=== PATIENT | male | born 1975 | race Asian ===

== ENCOUNTER 2017-10-09 15:54 | Inpatient (IN) | payer MEDICAID ==
[~2017-10-09] VITALS: Ht 180.3 cm; Wt 89.8 kg
[~2017-10-09 15:54] MED LIST: BACL10TA PO; CIPR-211 PO; GABA-529 PO; HYDR-4100 PO; LORA-258 PO; LOVA20TA2 PO
[2017-10-09 16:17] VITALS: BP_SYST 122
[2017-10-09 18:00] LABS: BILIRUBIN,URINE NEGATIVE (NEGATIVE); BLOOD, URINE 3+ (NEGATIVE); CLARITY/URINE SL HAZY (CLEAR); COLOR,URINE YELLOW (YELLOW); GLUCOSE,URINE NEGATIVE (NEGATIVE); KETONES,URINE TRACE (NEGATIVE); LEUKOCYTE ESTERASE ,URINE 3+ (NEGATIVE); NITRITE, URINE POSITIVE (NEGATIVE); PH,URINE 7.5 (5.0-8.0); PROTEIN URINE 1+ (NEGATIVE); UROBILINOGEN,URINE 0.2 (0.2-1.0)
[2017-10-09] MEDS ORDERED: LORazepam 1 MG TABLET PO ONE (18:00)
[2017-10-09 18:09] LABS: BACTERIA,URINE MODERATE /HPF (None Seen); WBC,URINE >100 /HPF (0-3)
[2017-10-09 18:10] LABS: MUCUS,URINE None Seen /LPF (None Seen)
[2017-10-09 18:30] LABS: CALCIUM 10.2 mg/dL (8.4-11.0); CREATININE 0.52 mg/dL (0.55-1.30); POTASSIUM 4.2 mmol/L (3.5-5.1)
[2017-10-09] MEDS ORDERED: cefTRIAXone 1 GM VIAL IM ONE (18:30)
[2017-10-09 18:31] LABS: BASOPHILS # (AUTO) 0.2 K/uL (0.0-0.2); BASOPHILS % (AUTO) 1.1 % (0.0-2.0); EOSINOPHILS # (AUTO) 0.1 K/uL (0.0-0.4); EOSINOPHILS % (AUTO) 0.6 % (0.0-4.0); HEMATOCRIT 50.9 % (36-54); HEMOGLOBIN 17.2 g/dL (14.0-18.0); LYMPHOCYTES # (AUTO) 1.5 K/uL (1.0-5.5); LYMPHOCYTES % (AUTO) 8.5 % (20.5-51.5); MEAN CORPUSCULAR HEMOGLOBIN 29 pg (27-31); MEAN CORPUSCULAR HGB CONC 34 % (32-36); MEAN CORPUSCULAR VOLUME 87 fL (79.0-98.0); MONOCYTES % (AUTO) 5.6 % (1.7-9.3); NEUTROPHILS # (AUTO) 15.4 K/uL (1.8-7.7); NEUTROPHILS % (AUTO) 84.2 % (40.0-70.0); PLATELET COUNT (AUTO) 262 K/uL (130-430); RED BLOOD CELL COUNT(AUTO) 5.84 MIL/uL (4.2-6.2); RED CELL DISTRIBUTION WIDTH 12.9 % (9.0-15.0); WHITE BLOOD COUNT (AUTO) 18.2 K/uL (4.8-10.8)
[2017-10-09 18:35] LABS: ALBUMIN 4.3 g/dL (3.4-4.8); TOTAL BILIRUBIN 0.6 mg/dL (0.0-1.0)
[2017-10-09 18:41] LABS: PROTHROMBIN TIME 10.1 SECS (9.5-12.5)
[2017-10-09] MEDS: NACL 0.9% 1,000 ML IV SCH ×2 (19:09→20:43)
[2017-10-09] MEDS ORDERED: MORPHINE 4 MG/ML INJ. SYRINGE IVP ONE (19:15)
[2017-10-09 19:28] VITALS: BP_SYST 111
[2017-10-09] MEDS ORDERED: POTASSIUM CHLORIDE 20 MEQ TAB.PRT.SR PO PRN (19:30)
[2017-10-09] MEDS ORDERED: ONDANSETRON HCL 4 MG/2 ML VIAL IVP PRN (19:30)
[2017-10-09] MEDS ORDERED: MAGNESIUM SULFATE 50 ML IV PRN (19:30)
[2017-10-09] MEDS ORDERED: ACETAMINOPHEN 325 MG TABLET PO PRN (19:30)
[2017-10-09] MEDS ORDERED: MUPIROCIN 2% TOPICAL OINTMENT 22 GM NS PRN (19:30)
[2017-10-09] MEDS: MORPHINE 4 MG/ML INJ. SYRINGE IVP PRN (20:20)
[2017-10-09] MEDS: SIMVASTATIN 10 MG TABLET PO SCH (20:43)
[2017-10-09] MEDS: GABAPENTIN 100 MG CAPSULE PO SCH (20:43)
[2017-10-09] MEDS: HEPARIN SODIUM,PORCINE 5000 UNITS/ML VIAL SUBCUT SCH (20:45)
[2017-10-09 21:25] VITALS: BP_SYST 112
[2017-10-09] MEDS: LORazepam 2 MG/ML VIAL IVP PRN (21:33)
[2017-10-09 23:22] VITALS: BP_SYST 125
[2017-10-09] MEDS: BACLOFEN 10 MG TABLET PO SCH (23:22)
[2017-10-10] MEDS: NACL 0.9% 1,000 ML IV SCH ×4 (00:55→22:25)
[2017-10-10] MEDS: BACLOFEN 10 MG TABLET PO SCH ×3 (05:02→18:37)
[2017-10-10] MEDS: MORPHINE 4 MG/ML INJ. SYRINGE IVP PRN ×5 (05:08→22:09)
[2017-10-10] MEDS: LORazepam 2 MG/ML VIAL IVP PRN ×3 (05:46→18:37)
[2017-10-10 07:11] LABS: CALCIUM 8.9 mg/dL (8.4-11.0); CREATININE 0.44 mg/dL (0.55-1.30); POTASSIUM 3.6 mmol/L (3.5-5.1)
[2017-10-10 07:49] LABS: BASOPHILS # (AUTO) 0.1 K/uL (0.0-0.2); BASOPHILS % (AUTO) 0.4 % (0.0-2.0); EOSINOPHILS # (AUTO) 0.4 K/uL (0.0-0.4); EOSINOPHILS % (AUTO) 2.8 % (0.0-4.0); HEMATOCRIT 41.6 % (36-54); HEMOGLOBIN 13.5 g/dL (14.0-18.0); LYMPHOCYTES # (AUTO) 2.6 K/uL (1.0-5.5); LYMPHOCYTES % (AUTO) 18.7 % (20.5-51.5); MEAN CORPUSCULAR HEMOGLOBIN 29 pg (27-31); MEAN CORPUSCULAR HGB CONC 33 % (32-36); MEAN CORPUSCULAR VOLUME 89 fL (79.0-98.0); MONOCYTES # (AUTO) 1.4 K/uL (0.0-1.0); MONOCYTES % (AUTO) 9.9 % (1.7-9.3); NEUTROPHILS # (AUTO) 9.3 K/uL (1.8-7.7); NEUTROPHILS % (AUTO) 68.2 % (40.0-70.0); PLATELET COUNT (AUTO) 240 K/uL (130-430); RED BLOOD CELL COUNT(AUTO) 4.69 MIL/uL (4.2-6.2); RED CELL DISTRIBUTION WIDTH 13.1 % (9.0-15.0); WHITE BLOOD COUNT (AUTO) 13.8 K/uL (4.8-10.8)
[2017-10-10 08:02] VITALS: BP_SYST 111
[2017-10-10] MEDS: HEPARIN SODIUM,PORCINE 5000 UNITS/ML VIAL SUBCUT SCH ×2 (09:23→20:48)
[2017-10-10] MEDS: HYDROcodone/ACETAMIN 10-325 MG TAB PO SCH (09:24)
[2017-10-10] MEDS: GABAPENTIN 100 MG CAPSULE PO SCH ×3 (09:24→20:46)
[2017-10-10 12:30] VITALS: BP_SYST 128
[2017-10-10 16:48] VITALS: BP_SYST 100
[2017-10-10] MEDS: SIMVASTATIN 10 MG TABLET PO SCH (18:36)
[2017-10-10 20:00] VITALS: BP_SYST 111
[2017-10-10] MEDS ORDERED: cefTRIAXone 1 GM in D5W 50 ML IV SCH (21:00)
[2017-10-11 00:01] VITALS: BP_SYST 136
[2017-10-11] MEDS: BACLOFEN 10 MG TABLET PO SCH ×5 (00:15→23:09)
[2017-10-11] MEDS: LORazepam 2 MG/ML VIAL IVP PRN ×4 (00:16→20:54)
[2017-10-11] MEDS: MORPHINE 4 MG/ML INJ. SYRINGE IVP PRN ×5 (05:59→22:23)
[2017-10-11 06:39] LABS: BASOPHILS % (AUTO) 0.4 % (0.0-2.0); EOSINOPHILS # (AUTO) 0.4 K/uL (0.0-0.4); EOSINOPHILS % (AUTO) 4.6 % (0.0-4.0); HEMATOCRIT 39.1 % (36-54); HEMOGLOBIN 12.4 g/dL (14.0-18.0); LYMPHOCYTES # (AUTO) 1.4 K/uL (1.0-5.5); LYMPHOCYTES % (AUTO) 17.1 % (20.5-51.5); MEAN CORPUSCULAR HEMOGLOBIN 28 pg (27-31); MEAN CORPUSCULAR HGB CONC 32 % (32-36); MEAN CORPUSCULAR VOLUME 89 fL (79.0-98.0); MONOCYTES # (AUTO) 0.6 K/uL (0.0-1.0); MONOCYTES % (AUTO) 7.4 % (1.7-9.3); NEUTROPHILS % (AUTO) 70.5 % (40.0-70.0); PLATELET COUNT (AUTO) 200 K/uL (130-430); RED CELL DISTRIBUTION WIDTH 12.8 % (9.0-15.0); WHITE BLOOD COUNT (AUTO) 8.4 K/uL (4.8-10.8)
[2017-10-11 06:43] LABS: CALCIUM 9.1 mg/dL (8.4-11.0); CREATININE 0.29 mg/dL (0.55-1.30); POTASSIUM 3.6 mmol/L (3.5-5.1)
[2017-10-11 08:17] VITALS: BP_SYST 107
[2017-10-11] MEDS: NACL 0.9% 1,000 ML IV SCH ×2 (08:29→20:42)
[2017-10-11] MEDS: HEPARIN SODIUM,PORCINE 5000 UNITS/ML VIAL SUBCUT SCH ×2 (08:32→20:10)
[2017-10-11] MEDS: GABAPENTIN 100 MG CAPSULE PO SCH ×3 (08:33→20:10)
[2017-10-11] MEDS: HYDROcodone/ACETAMIN 10-325 MG TAB PO SCH (08:33)
[2017-10-11] MEDS ORDERED: LEVO500T20 PO (08:50)
[2017-10-11 11:24] VITALS: BP_SYST 115
[2017-10-11] MEDS: DOCUSATE SODIUM 100 MG CAPSULE PO PRN (15:10)
[2017-10-11 15:34] VITALS: BP_SYST 130
[2017-10-11] MEDS: SIMVASTATIN 10 MG TABLET PO SCH (17:49)
[2017-10-11] MEDS: PIPERACILLIN/TAZO 3.375/DEX-IS 50 ML IV SCH ×2 (17:50→23:09)
[2017-10-11] MEDS ORDERED: BISACODYL 10 MG/SUPPOSITORY RC SCH (19:30)
[2017-10-11 20:10] VITALS: BP_SYST 141
[2017-10-11] MEDS: ZOLPIDEM TARTRATE 5 MG TABLET PO PRN (22:23)
[2017-10-12] VITALS (7 sets, daily range): BP systolic 102–163
[2017-10-12] MEDS: MORPHINE 4 MG/ML INJ. SYRINGE IVP PRN ×6 (01:13→22:33)
[2017-10-12] MEDS: BACLOFEN 10 MG TABLET PO SCH ×4 (05:22→23:13)
[2017-10-12] MEDS: PIPERACILLIN/TAZO 3.375/DEX-IS 50 ML IV SCH (05:22)
[2017-10-12] MEDS: LORazepam 2 MG/ML VIAL IVP PRN ×3 (06:06→21:32)
[2017-10-12] MEDS: NACL 0.9% 1,000 ML IV SCH ×2 (06:30→17:28)
[2017-10-12 07:07] LABS: BASOPHILS % (AUTO) 0.4 % (0.0-2.0); EOSINOPHILS # (AUTO) 0.3 K/uL (0.0-0.4); EOSINOPHILS % (AUTO) 3.7 % (0.0-4.0); HEMATOCRIT 37.7 % (36-54); HEMOGLOBIN 12.1 g/dL (14.0-18.0); LYMPHOCYTES # (AUTO) 1.9 K/uL (1.0-5.5); LYMPHOCYTES % (AUTO) 25.4 % (20.5-51.5); MEAN CORPUSCULAR HEMOGLOBIN 28 pg (27-31); MEAN CORPUSCULAR HGB CONC 32 % (32-36); MEAN CORPUSCULAR VOLUME 89 fL (79.0-98.0); MONOCYTES # (AUTO) 0.6 K/uL (0.0-1.0); MONOCYTES % (AUTO) 7.8 % (1.7-9.3); NEUTROPHILS # (AUTO) 4.6 K/uL (1.8-7.7); NEUTROPHILS % (AUTO) 62.7 % (40.0-70.0); PLATELET COUNT (AUTO) 227 K/uL (130-430); RED BLOOD CELL COUNT(AUTO) 4.26 MIL/uL (4.2-6.2); RED CELL DISTRIBUTION WIDTH 12.6 % (9.0-15.0); WHITE BLOOD COUNT (AUTO) 7.4 K/uL (4.8-10.8)
[2017-10-12 07:11] LABS: CALCIUM 9.3 mg/dL (8.4-11.0); CREATININE 0.37 mg/dL (0.55-1.30); POTASSIUM 3.5 mmol/L (3.5-5.1)
[2017-10-12] MEDS: GABAPENTIN 100 MG CAPSULE PO SCH ×3 (08:13→21:19)
[2017-10-12] MEDS: HYDROcodone/ACETAMIN 10-325 MG TAB PO SCH (08:13)
[2017-10-12] MEDS: HEPARIN SODIUM,PORCINE 5000 UNITS/ML VIAL SUBCUT SCH ×2 (08:17→21:20)
[2017-10-12] MEDS: METOPROLOL TARTRATE 25 MG TABLET PO SCH (09:19)
[2017-10-12] MEDS: AMPICILLIN SODIUM 2 GM in NS 100 ML IV SCH ×3 (11:26→23:13)
[2017-10-12] MEDS: SIMVASTATIN 10 MG TABLET PO SCH (17:28)
[2017-10-12] MEDS: ZOLPIDEM TARTRATE 5 MG TABLET PO PRN (23:14)
[2017-10-13] MEDS: AMPICILLIN SODIUM 2 GM in NS 100 ML IV SCH ×4 (06:20→23:53)
[2017-10-13] MEDS: NACL 0.9% 1,000 ML IV SCH ×3 (06:20→22:52)
[2017-10-13] MEDS: BACLOFEN 10 MG TABLET PO SCH ×4 (06:21→23:53)
[2017-10-13] MEDS: MORPHINE 4 MG/ML INJ. SYRINGE IVP PRN ×5 (06:31→22:56)
[2017-10-13 06:33] VITALS: BP_SYST 159
[2017-10-13 07:35] LABS: CALCIUM 9.4 mg/dL (8.4-11.0); CREATININE 0.35 mg/dL (0.55-1.30); POTASSIUM 3.5 mmol/L (3.5-5.1)
[2017-10-13 07:36] LABS: BASOPHILS % (AUTO) 0.5 % (0.0-2.0); EOSINOPHILS # (AUTO) 0.2 K/uL (0.0-0.4); EOSINOPHILS % (AUTO) 3.6 % (0.0-4.0); HEMATOCRIT 38.1 % (36-54); HEMOGLOBIN 12.8 g/dL (14.0-18.0); LYMPHOCYTES # (AUTO) 1.3 K/uL (1.0-5.5); LYMPHOCYTES % (AUTO) 18.1 % (20.5-51.5); MEAN CORPUSCULAR HEMOGLOBIN 30 pg (27-31); MEAN CORPUSCULAR HGB CONC 34 % (32-36); MEAN CORPUSCULAR VOLUME 89 fL (79.0-98.0); MONOCYTES # (AUTO) 0.5 K/uL (0.0-1.0); MONOCYTES % (AUTO) 6.9 % (1.7-9.3); NEUTROPHILS # (AUTO) 4.9 K/uL (1.8-7.7); NEUTROPHILS % (AUTO) 70.9 % (40.0-70.0); PLATELET COUNT (AUTO) 221 K/uL (130-430); RED BLOOD CELL COUNT(AUTO) 4.29 MIL/uL (4.2-6.2); RED CELL DISTRIBUTION WIDTH 12.8 % (9.0-15.0); WHITE BLOOD COUNT (AUTO) 6.9 K/uL (4.8-10.8)
[2017-10-13 08:11] VITALS: BP_SYST 153
[2017-10-13] MEDS: HYDROcodone/ACETAMIN 10-325 MG TAB PO SCH (08:54)
[2017-10-13] MEDS: GABAPENTIN 100 MG CAPSULE PO SCH ×3 (08:55→20:40)
[2017-10-13] MEDS: METOPROLOL TARTRATE 25 MG TABLET PO SCH (08:55)
[2017-10-13] MEDS: HEPARIN SODIUM,PORCINE 5000 UNITS/ML VIAL SUBCUT SCH ×2 (08:57→20:41)
[2017-10-13] MEDS: DOCUSATE SODIUM 100 MG CAPSULE PO PRN (09:00)
[2017-10-13] MEDS ORDERED: BISACODYL 10 MG/SUPPOSITORY RC ONE (11:45)
[2017-10-13 12:15] VITALS: BP_SYST 124
[2017-10-13 16:04] VITALS: BP_SYST 145
[2017-10-13] MEDS: SIMVASTATIN 10 MG TABLET PO SCH (17:17)
[2017-10-13] MEDS: LORazepam 2 MG/ML VIAL IVP PRN (20:33)
[2017-10-13] MEDS: ZOLPIDEM TARTRATE 5 MG TABLET PO PRN (23:56)
[2017-10-14 00:33] VITALS: BP_SYST 131
[2017-10-14] MEDS: MORPHINE 4 MG/ML INJ. SYRINGE IVP PRN ×2 (01:23→09:57)
[2017-10-14] MEDS: BACLOFEN 10 MG TABLET PO SCH ×2 (05:32→12:49)
[2017-10-14] MEDS: AMPICILLIN SODIUM 2 GM in NS 100 ML IV SCH ×2 (05:32→12:49)
[2017-10-14 08:20] LABS: BASOPHILS % (AUTO) 0.4 % (0.0-2.0); EOSINOPHILS # (AUTO) 0.2 K/uL (0.0-0.4); EOSINOPHILS % (AUTO) 2.9 % (0.0-4.0); HEMATOCRIT 38.8 % (36-54); HEMOGLOBIN 12.8 g/dL (14.0-18.0); LYMPHOCYTES # (AUTO) 1.5 K/uL (1.0-5.5); LYMPHOCYTES % (AUTO) 18.2 % (20.5-51.5); MEAN CORPUSCULAR HEMOGLOBIN 29 pg (27-31); MEAN CORPUSCULAR HGB CONC 33 % (32-36); MEAN CORPUSCULAR VOLUME 89 fL (79.0-98.0); MONOCYTES # (AUTO) 0.7 K/uL (0.0-1.0); MONOCYTES % (AUTO) 8.1 % (1.7-9.3); NEUTROPHILS # (AUTO) 6.1 K/uL (1.8-7.7); NEUTROPHILS % (AUTO) 70.4 % (40.0-70.0); PLATELET COUNT (AUTO) 240 K/uL (130-430); RED BLOOD CELL COUNT(AUTO) 4.36 MIL/uL (4.2-6.2); RED CELL DISTRIBUTION WIDTH 12.4 % (9.0-15.0); WHITE BLOOD COUNT (AUTO) 8.5 K/uL (4.8-10.8)
[2017-10-14 08:22] VITALS: BP_SYST 150
[2017-10-14 08:33] LABS: CALCIUM 9.1 mg/dL (8.4-11.0); CREATININE 0.38 mg/dL (0.55-1.30); POTASSIUM 3.5 mmol/L (3.5-5.1)
[2017-10-14] MEDS: HEPARIN SODIUM,PORCINE 5000 UNITS/ML VIAL SUBCUT SCH (08:37)
[2017-10-14] MEDS: GABAPENTIN 100 MG CAPSULE PO SCH (08:43)
[2017-10-14] MEDS: HYDROcodone/ACETAMIN 10-325 MG TAB PO SCH (08:44)
[2017-10-14] MEDS: NACL 0.9% 1,000 ML IV SCH (08:45)
[2017-10-14] MEDS: METOPROLOL TARTRATE 25 MG TABLET PO SCH (08:45)
[2017-10-14] MEDS: LORazepam 2 MG/ML VIAL IVP PRN (08:51)
[2017-10-14] MEDS ORDERED: AMOX500C2 PO (08:58)
[2017-10-14] MEDS ORDERED: LEVO500T20 PO (08:58)
[2017-10-14] MEDS ORDERED: ASPI-1063 PO (08:59)
[2017-10-14] MEDS ORDERED: BISACODYL 10 MG/SUPPOSITORY RC SCH (09:00)
[2017-10-14 12:15] VITALS: BP_SYST 128
[2017-10-14 13:09] VITALS: BP_SYST 128
== END 2017-10-14 14:30 | disposition home or self-care (01) | DRG 720 ==
LOC: SED 15:54 → SMU 18:47
PROVIDERS: ADMIT General Practice; ATTEND General Practice
DX: A40.1 Sepsis due to streptococcus, group B (principal); G82.50 Quadriplegia, unspecified; M62.838 Other muscle spasm; N39.0 Urinary tract infection, site not specified; B95.61 Methicillin susceptible Staphylococcus aureus infection as the cause of diseases classified elsewhere; B96.89 Other specified bacterial agents as the cause of diseases classified elsewhere; E66.9 Obesity, unspecified; G89.4 Chronic pain syndrome; Z87.440 Personal history of urinary (tract) infections; Z68.27 Body mass index [BMI] 27.0-27.9, adult; Z79.891 Long term (current) use of opiate analgesic; Z74.01 Bed confinement status
CPT/HCPCS: 36415; 71045; 80048; 80053; 81000-TC; 83605; 83735-TC; 83880; 84484; 85025; 85610-TC; 85730-TC; 87040-TC; 87086; 87186-TC; 93005; 96361; 96372; 96374; 99291; C1751; J0290; J0696; J1644; J2060; J2270; J2543; J7030; J7060

== ENCOUNTER 2018-01-15 22:02 | Inpatient (IN) | payer MEDICAID ==
[~2018-01-15] VITALS: Ht 180.3 cm; Wt 94.8 kg
[~2018-01-15 22:02] MED LIST changes: +AMOX500C2 PO; +ASPI-1153 PO; -CIPR-211 PO; +LEVO500T20 PO
[2018-01-15 22:22] VITALS: BP_SYST 157
[2018-01-15] MEDS ORDERED: NACL 0.9% 1,000 ML IV ONE (22:52)
[2018-01-15] MEDS ORDERED: KETOROLAC TROMETHAMINE 60 MG/2 ML VIAL IM ONE (23:00)
[2018-01-15 23:50] LABS: MEAN CORPUSCULAR HEMOGLOBIN 30 pg (27-31); PLATELET COUNT (AUTO) 271 K/uL (130-430)
[2018-01-16 00:06] LABS: CREATININE 0.66 mg/dL (0.55-1.30); POTASSIUM 3.9 mmol/L (3.5-5.1)
[2018-01-16 00:12] LABS: ALBUMIN 4.6 g/dL (3.4-4.8); TOTAL BILIRUBIN 0.4 mg/dL (0.0-1.0)
[2018-01-16 00:14] LABS: INR 1.1 (0.80-1.20); PROTHROMBIN TIME 10.9 SECS (9.5-12.5)
[2018-01-16 00:18] LABS: BASOPHILS # (AUTO) 0.1 K/uL (0.0-0.2); BASOPHILS % (AUTO) 0.8 % (0.0-2.0); EOSINOPHILS # (AUTO) 0.1 K/uL (0.0-0.4); EOSINOPHILS % (AUTO) 0.3 % (0.0-4.0); HEMATOCRIT 52.9 % (36-54); HEMOGLOBIN 18.2 g/dL (14.0-18.0); LYMPHOCYTES # (AUTO) 1.7 K/uL (1.0-5.5); LYMPHOCYTES % (AUTO) 10.1 % (20.5-51.5); MEAN CORPUSCULAR HGB CONC 34 % (32-36); MEAN CORPUSCULAR VOLUME 88 fL (79.0-98.0); MONOCYTES # (AUTO) 0.9 K/uL (0.0-1.0); MONOCYTES % (AUTO) 5.3 % (1.7-9.3); NEUTROPHILS # (AUTO) 13.9 K/uL (1.8-7.7); NEUTROPHILS % (AUTO) 83.5 % (40.0-70.0); RED BLOOD CELL COUNT(AUTO) 6.02 MIL/uL (4.2-6.2); RED CELL DISTRIBUTION WIDTH 13.5 % (9.0-15.0); WHITE BLOOD COUNT (AUTO) 16.7 K/uL (4.8-10.8)
[2018-01-16] MEDS ORDERED: NACL 0.9% 1,000 ML IV ONE (01:15)
[2018-01-16] MEDS ORDERED: LORazepam 1 MG TABLET ONE (01:40)
[2018-01-16] MEDS ORDERED: LORazepam 2 MG/ML VIAL (FOR ER USE) ONE (01:43)
[2018-01-16] MEDS ORDERED: cefTRIAXone 1 GM VIAL ONE (02:01)
[2018-01-16] MEDS ORDERED: MORPHINE 4 MG/ML INJ. SYRINGE ONE (02:02)
[2018-01-16] MEDS ORDERED: LYR25 PO (03:03)
[2018-01-16] MEDS ORDERED: HYDR-4100 PO (03:03)
[2018-01-16] MEDS ORDERED: LORA-259 PO (03:03)
[2018-01-16] MEDS ORDERED: AMIT10TA6 PO (03:03)
[2018-01-16 04:37] VITALS: BP_SYST 136
[2018-01-16] MEDS: ALPRAZolam 0.25 MG TABLET PO PRN ×2 (05:23→12:02)
[2018-01-16] MEDS: KCL 20 mEq in D5/0.45NS 1000mL 1,000 ML IV SCH ×3 (05:24→23:45)
[2018-01-16] MEDS: HYDROcodone/ACETAMIN 10-325 MG TAB PO PRN ×2 (05:37→12:03)
[2018-01-16] MEDS ORDERED: BACLOFEN 10 MG TABLET PO ONE (06:00)
[2018-01-16 08:00] VITALS: BP_SYST 154
[2018-01-16] MEDS: CEFEPIME 1 GM in D5W 50 ML IV SCH ×2 (09:22→21:02)
[2018-01-16 12:00] VITALS: BP_SYST 112
[2018-01-16 12:41] VITALS: BP_SYST 154
[2018-01-16] MEDS: BACLOFEN 10 MG TABLET PO SCH ×3 (13:19→21:02)
[2018-01-16 15:01] LABS: BILIRUBIN,URINE NEGATIVE (NEGATIVE); BLOOD, URINE 3+ (NEGATIVE); CLARITY/URINE HAZY (CLEAR); COLOR,URINE YELLOW (YELLOW); GLUCOSE,URINE NEGATIVE (NEGATIVE); KETONES,URINE 2+ (NEGATIVE); LEUKOCYTE ESTERASE ,URINE 3+ (NEGATIVE); NITRITE, URINE POSITIVE (NEGATIVE); PH,URINE 7.5 (5.0-8.0); PROTEIN URINE 1+ (NEGATIVE); UROBILINOGEN,URINE 0.2 (0.2-1.0)
[2018-01-16 15:09] LABS: BACTERIA,URINE MODERATE /HPF (None Seen); MUCUS,URINE None Seen /LPF (None Seen); RBC,URINE >100 /HPF (0-3); WBC,URINE 50-80 /HPF (0-3)
[2018-01-16 15:17] LABS: PROTHROMBIN TIME 10.4 SECS (9.5-12.5)
[2018-01-16 16:00] VITALS: BP_SYST 138
[2018-01-16] MEDS: HYDROcodone/ACETAMIN 10-325 MG TAB PO SCH ×2 (16:32→21:01)
[2018-01-16] MEDS ORDERED: D5 IV ONE (17:00)
[2018-01-16] MEDS ORDERED: KCL IV ONE (17:00)
[2018-01-16] MEDS ORDERED: [UNRECOGNIZED DRUG - OTHER] IV ONE (17:00)
[2018-01-16 20:00] VITALS: BP_SYST 135
[2018-01-16] MEDS: AMITRIPTYLINE HCL 25 MG TABLET (ELAVIL) PO SCH (21:02)
[2018-01-16] MEDS: PREGABALIN 75 MG CAPSULE (LYRICA) PO SCH (21:45)
[2018-01-16] MEDS: LORazepam 1 MG TABLET PO SCH (21:45)
[2018-01-17] VITALS (7 sets, daily range): BP systolic 92–109
[2018-01-17] MEDS: HYDROcodone/ACETAMIN 10-325 MG TAB PO SCH ×6 (01:02→18:46)
[2018-01-17] MEDS: KCL 20 mEq in D5/0.45NS 1000mL 1,000 ML IV SCH ×3 (05:41→22:52)
[2018-01-17] MEDS: ALPRAZolam 0.25 MG TABLET PO PRN (05:46)
[2018-01-17] MEDS: HYDROcodone/ACETAMIN 10-325 MG TAB PO PRN (07:35)
[2018-01-17 07:45] LABS: BASOPHILS % (AUTO) 0.4 % (0.0-2.0); EOSINOPHILS # (AUTO) 0.5 K/uL (0.0-0.4); EOSINOPHILS % (AUTO) 4.5 % (0.0-4.0); HEMATOCRIT 40.8 % (36-54); HEMOGLOBIN 13.7 g/dL (14.0-18.0); LYMPHOCYTES # (AUTO) 1.2 K/uL (1.0-5.5); MEAN CORPUSCULAR HEMOGLOBIN 30 pg (27-31); MEAN CORPUSCULAR HGB CONC 34 % (32-36); MEAN CORPUSCULAR VOLUME 89 fL (79.0-98.0); MONOCYTES # (AUTO) 0.6 K/uL (0.0-1.0); MONOCYTES % (AUTO) 5.5 % (1.7-9.3); NEUTROPHILS # (AUTO) 9.2 K/uL (1.8-7.7); NEUTROPHILS % (AUTO) 79.6 % (40.0-70.0); PLATELET COUNT (AUTO) 201 K/uL (130-430); RED BLOOD CELL COUNT(AUTO) 4.57 MIL/uL (4.2-6.2); RED CELL DISTRIBUTION WIDTH 13.8 % (9.0-15.0); WHITE BLOOD COUNT (AUTO) 11.5 K/uL (4.8-10.8)
[2018-01-17 08:12] LABS: CALCIUM 8.7 mg/dL (8.4-11.0); CREATININE 0.44 mg/dL (0.55-1.30); POTASSIUM 3.6 mmol/L (3.5-5.1)
[2018-01-17] MEDS: PREGABALIN 75 MG CAPSULE (LYRICA) PO SCH ×2 (09:24→22:53)
[2018-01-17] MEDS: LORazepam 1 MG TABLET PO SCH ×2 (09:25→22:53)
[2018-01-17] MEDS: BACLOFEN 10 MG TABLET PO SCH ×4 (09:25→22:53)
[2018-01-17] MEDS: CEFEPIME 1 GM in D5W 50 ML IV SCH ×2 (09:25→22:52)
[2018-01-17] MEDS ORDERED: BISACODYL 10 MG/SUPPOSITORY RC ONE (14:00)
[2018-01-17] MEDS: AMITRIPTYLINE HCL 25 MG TABLET (ELAVIL) PO SCH (22:53)
[2018-01-18] MEDS: HYDROcodone/ACETAMIN 10-325 MG TAB PO SCH ×6 (00:04→18:50)
[2018-01-18 00:31] VITALS: BP_SYST 135
[2018-01-18] MEDS: ALPRAZolam 0.25 MG TABLET PO PRN (04:05)
[2018-01-18] MEDS: KCL 20 mEq in D5/0.45NS 1000mL 1,000 ML IV SCH ×2 (05:36→14:07)
[2018-01-18 08:00] VITALS: BP_SYST 98
[2018-01-18] MEDS ORDERED: BISACODYL 10 MG/SUPPOSITORY RC SCH (09:00)
[2018-01-18] MEDS: BACLOFEN 10 MG TABLET PO SCH ×4 (09:05→20:14)
[2018-01-18] MEDS: PREGABALIN 75 MG CAPSULE (LYRICA) PO SCH ×2 (09:05→20:15)
[2018-01-18] MEDS: LORazepam 1 MG TABLET PO SCH ×2 (09:06→20:15)
[2018-01-18] MEDS: CEFEPIME 1 GM in D5W 50 ML IV SCH ×2 (09:06→20:14)
[2018-01-18 12:45] VITALS: BP_SYST 113
[2018-01-18 16:45] VITALS: BP_SYST 134
[2018-01-18 19:07] VITALS: BP_SYST 134
[2018-01-18 20:00] VITALS: BP_SYST 133
[2018-01-18] MEDS: AMITRIPTYLINE HCL 25 MG TABLET (ELAVIL) PO SCH (20:14)
== END 2018-01-19 00:21 | disposition home or self-care (01) | DRG 720 ==
LOC: SED 22:02 → STU 01-16 03:57
PROVIDERS: ADMIT Family Medicine; ATTEND Family Medicine
PROC: 02HV33Z Insertion of Infusion Device into Superior Vena Cava, Percutaneous Approach (ICD-10-PCS; principal; 2018-01-16)
PROC: 02PYX3Z Removal of Infusion Device from Great Vessel, External Approach (ICD-10-PCS; 2018-01-18)
DX: A41.9 Sepsis, unspecified organism (principal); G82.50 Quadriplegia, unspecified; E87.2 Acidosis; E87.1 Hypo-osmolality and hyponatremia; N39.0 Urinary tract infection, site not specified; E86.0 Dehydration; N31.9 Neuromuscular dysfunction of bladder, unspecified; F17.210 Nicotine dependence, cigarettes, uncomplicated; K59.00 Constipation, unspecified; R31.9 Hematuria, unspecified
CPT/HCPCS: 36415; 71045; 80048; 80053; 81000-TC; 82150-TC; 82550-TC; 83605; 83690-TC; 85025; 85610-TC; 85730-TC; 87040-TC; 87086; 93005; C1751; J0692; J0696; J1885; J2060; J2270; J7030; J7060

== ENCOUNTER 2018-06-28 11:43 | Inpatient (IN) | payer MEDICAID ==
[~2018-06-28] VITALS: Ht 177.8 cm; Wt 103.0 kg
[~2018-06-28 11:43] MED LIST changes: +AMIT10TA6 PO; -AMOX500C2 PO; -ASPI-1153 PO; -BACL10TA PO; -GABA-529 PO; -LEVO500T20 PO; -LORA-258 PO; +LORA-259 PO; -LOVA20TA2 PO; +LYR25 PO
[2018-06-28] MEDS ORDERED: fentaNYL CITRATE/PF 100 MCG/2 ML AMP IVP ONE (11:45)
[2018-06-28 11:48] VITALS: BP_SYST 100
--- NOTE | 2018-06-28 11:49 | NUR ---
Pt wheeled to bed 8
--- NOTE | 2018-06-28 11:53 | NUR ---
ER at bedside examining patient.
[2018-06-28] MEDS ORDERED: NACL 0.9% 1,000 ML IV ONE (11:55)
[2018-06-28] MEDS ORDERED: NS 1000 ML IV.SOLN IV ONE (12:00)
[2018-06-28] MEDS ORDERED: cefTRIAXone 1 GM IVPB PREMIX 50 ML IV ONE ×2 (12:00→14:46)
[2018-06-28] MEDS ORDERED: IPRATROPIUM BROM 0.5 MG/2.5 ML VIAL.NEB (ATROVENT) IH ONE (12:15)
[2018-06-28] MEDS ORDERED: ALBUTEROL SULFATE 0.083% 2.5 MG/3 ML VIAL.NEB IH ONE (12:15)
[2018-06-28] MEDS ORDERED: methylPREDNISolone SOD SUCC/PF 62.5 MG/ML VIAL IVP ONE (12:15)
[2018-06-28] MEDS ORDERED: ACETAMINOPHEN 500 MG TABLET PO ONE (12:30)
--- NOTE | 2018-06-28 13:20 | NUR ---
report recieved from Alvaro.
--- NOTE | 2018-06-28 13:50 | NUR ---
patient is AOx4 coming from home with caregiver at bedside. patient is a paraplegic with a superpubic catheter with c/o blood in the urine x 3 days. patient states he went to [place] to visit family with his children and where his urine became bright red and had a bad smell. once he returned home, he started to feel weak and developed a fever. no other complaint or injury at this time.
--- NOTE | 2018-06-28 13:52 | NUR ---
Medication reconciliation completed with information provided by patient. Any prior medication reconciliation on file was reviewed and corrected.
[2018-06-28 14:10] LABS: BILIRUBIN,URINE NEGATIVE (NEGATIVE); BLOOD, URINE 3+ (NEGATIVE); CLARITY/URINE CLOUDY (CLEAR); COLOR,URINE BROWN (YELLOW); GLUCOSE,URINE 3+ (NEGATIVE); KETONES,URINE 1+ (NEGATIVE); LEUKOCYTE ESTERASE ,URINE 1+ (NEGATIVE); PH,URINE 6.5 (5.0-8.0); PROTEIN URINE 3+ (NEGATIVE)
[2018-06-28 14:11] LABS: NITRITE, URINE POSITIVE (NEGATIVE)
[2018-06-28] MEDS ORDERED: VANCOMYCIN HCL 1,000 MG in NS 250 ML IV ONE (14:15)
[2018-06-28] MEDS ORDERED: LIDOCAINE 1%, 20 ML MDV 20 ML ONE (14:20)
[2018-06-28 14:39] LABS: BACTERIA,URINE MODERATE /HPF (None Seen); RBC,URINE >100 /HPF (0-3); WBC,URINE 20-50 /HPF (0-3); YEAST,URINE None Seen /HPF (None Seen)
[2018-06-28 14:40] LABS: MUCUS,URINE None Seen /LPF (None Seen)
[2018-06-28] MEDS ORDERED: methylPREDNISolone SOD SUCC/PF 62.5 MG/ML VIAL ONE ×2 (14:47→18:22)
[2018-06-28] MEDS ORDERED: VANCOMYCIN HCL 1000 MG/VIAL IV ONE (14:48)
[2018-06-28 15:01] LABS: CREATININE 0.97 mg/dL (0.55-1.30)
[2018-06-28 15:09] LABS: TOTAL BILIRUBIN 0.5 mg/dL (0.0-1.0)
[2018-06-28 15:10] LABS: ALBUMIN 3.2 g/dL (3.4-4.8)
--- NOTE | 2018-06-28 15:27 | NUR ---
Patient will be admitted to care of MD Bravo. Admitted to Telemetry unit. Will go to room 118B. Belongings list completed. Summary report printed. Report will be given at bedside.
[2018-06-28 15:33] LABS: INR 1.1 (0.80-1.20); PROTHROMBIN TIME 11.1 SECS (9.5-12.5)
--- NOTE | 2018-06-28 15:44 | NUR ---
ADMISSION NOTE Received patient from ER via anil, received report from BHAVIK WAITE. Patient admitted with diagnosis of SEPSIS. Patient oriented to hospital routine, call light, toileting and safety-patient verbalized understanding.
[2018-06-28 16:00] VITALS: BP_SYST 102
--- NOTE | 2018-06-28 16:05 | NUR ---
RN Note Dr. Bravo called for orders.
[2018-06-28 16:18] VITALS: BP_SYST 102
[2018-06-28 16:30] LABS: WHITE BLOOD COUNT (AUTO) 21.3 K/uL (4.8-10.8)
[2018-06-28 16:31] LABS: HEMATOCRIT 39.7 % (36-54); HEMOGLOBIN 13.3 g/dL (14.0-18.0); MEAN CORPUSCULAR HEMOGLOBIN 30 pg (27-31); MEAN CORPUSCULAR HGB CONC 33 % (32-36); MEAN CORPUSCULAR VOLUME 89 fL (79.0-98.0); PLATELET COUNT (AUTO) 192 K/uL (130-430); RED BLOOD CELL COUNT(AUTO) 4.48 MIL/uL (4.2-6.2); RED CELL DISTRIBUTION WIDTH 12.8 % (9.0-15.0)
[2018-06-28 16:36] LABS: BASOPHILS % (AUTO) 0.1 % (0.0-2.0); EOSINOPHILS % (AUTO) 0.2 % (0.0-4.0); LYMPHOCYTES % (AUTO) 4.2 % (20.5-51.5); MONOCYTES % (AUTO) 5.3 % (1.7-9.3); NEUTROPHILS # (AUTO) 19.3 K/uL (1.8-7.7); NEUTROPHILS % (AUTO) 90.2 % (40.0-70.0)
[2018-06-28 16:37] LABS: LYMPHOCYTES # (AUTO) 0.9 K/uL (1.0-5.5); MONOCYTES # (AUTO) 1.1 K/uL (0.0-1.0)
[2018-06-28 17:46] LABS: BAND % (MANUAL) 34 % (0-6); BASOPHILS % (MANUAL) 0 % (0-2); EOSINOPHILS % (MANUAL) 0 % (0-7); LYMPHOCYTES % (MANUAL) 6 % (20-46); MONOCYTES % (MANUAL) 6 % (0-11)
--- NOTE | 2018-06-28 18:02 | NUR ---
PAGED AGAIN FOR ORDERS.
[2018-06-28] MEDS ORDERED: MAGNESIUM SULFATE 1 GM/2 ML VIAL IV ONE (18:15)
[2018-06-28] MEDS: NACL 0.9% 1,000 ML IV SCH ×2 (18:17→20:55)
[2018-06-28] MEDS ORDERED: IPRATROPIUM/ALBUTEROL SULFATE 3 ML AMPUL.NEB (DUONEB) ONE (18:22)
[2018-06-28] MEDS ORDERED: MAGNESIUM SULFATE 50 ML IV ONE (18:23)
--- NOTE | 2018-06-28 18:27 | NUR ---
Closing Note Patient received SoluMedrol, Duoneb breathing treatment, and is currently running a Mag rider. Patient seems to be wheezing less. Current O2 sat is 100% on 3l. Right central line is in place running NS@150. Suprapubic cath is draining sallie urine. Will endorse care to the oncoming nurse.
[2018-06-28] MEDS ORDERED: DEXTROSE 50% JECT 50 ML DISP.SYRIN IVP PRN (18:45)
--- NOTE | 2018-06-28 18:58 | NUR ---
CONSULT CALLED FOR DR. MCCLOUD. SPOKE WITH MEDICAL ASSISTANT SECRETARY HATTIE. COMPUTER SYSTEMS SUPPORT SPECIALIST.
--- NOTE | 2018-06-28 18:59 | NUR ---
CONSULT CALLED FOR DR. BURT. SPOKE WITH CUPOLA LINER HATTIE.
[2018-06-28 19:00] VITALS: BP_SYST 139
--- NOTE | 2018-06-28 19:00 | NUR ---
change of shift.pt,.presents quadraplegic status.extremities;flaccid status.x4.pt.alert.pt.capable to answer q's;simple. pt.presents supra-pubic cath;nsg to note if hematuria manifests.pt.presents central line;rt.groin/femoral. x3 lumens. dsg intact.iv fluids infusing via central line.pt.presents respiratory status compromised,.pt.is receiving the administration o2 therapy via nasal cannulae.call light/telephone placed w/in the pt's reach.nsg to locate touch call light.
[2018-06-28] MEDS: IPRATROPIUM/ALBUTEROL SULFATE 3 ML AMPUL.NEB (DUONEB) INH SCH ×2 (19:46→23:05)
[2018-06-28 20:00] VITALS: BP_SYST 139
--- NOTE | 2018-06-28 20:00 | NUR ---
pt.assessed.v/s assessed;values w/in normal limits.pt.assessed for cleanliness.pt.repositioned.i have assessed the supra-pubic.i have assessed the supra-pubic;patent:urine content present.nsg to note if hematuria manifest;urine hue;sallie absent blood clots. i have assessed the central line:rt.femoral/groin.iv fluids infusing.i have assessed the respiratory status;o2-sat%=96%@21l/min via nasal cannulae.pt.has requested water.i have assisted the pt.w/the cup/eater.call light/telephone placed w/in the pt's reach.
[2018-06-28] MEDS: INSULIN REGULAR, HUMAN 100 UNITS/ML, 10 ML VIAL (novoLIN R) SUBCUT PRN (20:36)
--- NOTE | 2018-06-28 20:57 | NUR ---
Consultation called Reason for consultation: Elevated Trop Was consult called: Y Person who was notified: Kelly Consulting Physician: Brenton [employer] Consulting Ordering Physician: Dr. Bravo
[2018-06-28] MEDS ORDERED: ENOXAPARIN SODIUM 100 MG/ML SYRINGE SUBCUT SCH (21:00)
--- NOTE | 2018-06-28 21:00 | NUR ---
2100p medications administered.i have administered the initial dose;lovenox;i have apprised the pt.of the indication;medication; lovenox.pt's telephoned.requesting up-date.i have provide the pts' w/the pt's up-date w/in nsg parameters.
[2018-06-28 21:14] VITALS: BP_SYST 107
[2018-06-28] MEDS: LORazepam 1 MG TABLET PO SCH (21:54)
[2018-06-28] MEDS: HYDROcodone/ACETAMIN 10-325 MG TAB PO SCH (21:54)
[2018-06-28] MEDS ORDERED: methylPREDNISolone SOD SUCC/PF 62.5 MG/ML VIAL IVP SCH (22:00)
--- NOTE | 2018-06-28 22:00 | NUR ---
pt assessed.pt.presents quiescent affect;calm,somnolent.pt.assessed for cleanliness.pt.repositioned.i have assessed the supra-[pubic site;dsg intact.i have assessed the supra-pubic cath:patent urine content present;i have assessed the urine hematuria;urine hue; sallie,absent blood clots.call light/telephone placed w/in the pt's reach.
[2018-06-28] MEDS: PIPERACILLIN/TAZO 4.5GM/DEX-IS 100 ML IV SCH (22:01)
[2018-06-28] MEDS: ENOXAPARIN SODIUM 40 MG/0.4 ML SYRINGE SUBCUT SCH (22:03)
--- NOTE | 2018-06-29 | NUR ---
pt.assessed.v/s assessed;values w/in normal limits.presents quiescent affect;calm.pt.assessed for cleanliness.pt.repositioned. o2-sat%=96%@2l/min.general status stable.respiratory status stable.i have assessed the supra-pubic cath site dsg;intact.i have assessed the supra-pubic cath;patent;urine content present:i have assessed the urine:hematuria;urine hue;sallie.absent blood clots.call light/telephone placed w/in the pt's reach.
[2018-06-29] MEDS: HYDROcodone/ACETAMIN 10-325 MG TAB PO SCH ×7 (00:43→22:28)
[2018-06-29 01:27] VITALS: BP_SYST 118
--- NOTE | 2018-06-29 01:30 | NUR ---
i have attende to [facility];i have measured/emptied the catheter bag.
--- NOTE | 2018-06-29 02:00 | NUR ---
pt.assessed.pt.presents quiescent affect;calm somnolent.pt.assessed for cleanliness;pt.repositioned.i have assessed the supra-pubic site;dsg intact;supra;pubic cath patent;urine content present.i have assessed for hematuria;urine hue sallie absent clots.general; status stable.respiratory status stable.call light/telephone placed w/in the pt's reach.
[2018-06-29] MEDS: IPRATROPIUM/ALBUTEROL SULFATE 3 ML AMPUL.NEB (DUONEB) INH SCH ×6 (02:47→23:18)
[2018-06-29] MEDS: NACL 0.9% 1,000 ML IV SCH (03:27)
--- NOTE | 2018-06-29 03:45 | NUR ---
i have attended to the supra-pubic cath dsg.i have cleansed the area/changed the dsg.i have provided the touch-call light apparatus;2/t pt's status;quadraplegic.i have applied scd's stockings;i have provided the pt.w/the indication for the scd's air-compression stockings.i have changed the iv fluids bag.changed the iv fluids bag.
--- NOTE | 2018-06-29 04:00 | NUR ---
pt.assessed.pt.presents quiescent affect;calm,somnolent.pt.assessed for cleanliness;pt.repositioned.i have assessed the central line;intact. iv fluids infusing.i have assessed the supra-pubic cath;patent;urine present;urine hue;sallie absent blood clots.general status stable.respiratory status stable.touch;call light/telephone placed w/in the pt's reach.
[2018-06-29] MEDS: PIPERACILLIN/TAZO 4.5GM/DEX-IS 100 ML IV SCH ×3 (05:31→21:03)
[2018-06-29] MEDS: INSULIN REGULAR, HUMAN 100 UNITS/ML, 10 ML VIAL (novoLIN R) SUBCUT PRN ×4 (05:44→21:16)
[2018-06-29] MEDS ORDERED: methylPREDNISolone SOD SUCC/PF 62.5 MG/ML VIAL IVP SCH ×2 (06:00→21:00)
--- NOTE | 2018-06-29 06:20 | NUR ---
pt.assessed.i have assessed the blood glucose;value;328mg.i have administered:8-units;regular insulin.i have assessed the central line; rt.femoral/groin.patent;iv fluids infusing.i have administered the zosyn;abx;ivpb.0600a dose.i have administered the norco; 10/325mg po:0700a.i inquired if the pt,.was to receive the medication or refuse pt.stated he will receive the medication.i have assessed the supra-pubic cath;dsg intact;patent;urine content present,noted if hematuria manifested;urine hue sallie absent blood clots.touch;call light/telephone placed w/in the pt's reach.
--- NOTE | 2018-06-29 07:11 | NUR ---
Nutrition Update Julio Scale 13 noted. Pt admitted for sepsis Diet: NPO BMI: 32.4 kg/m2 RD to follow per nutrition care standards.
--- NOTE | 2018-06-29 07:38 | NUR ---
AM ROUNDS: REPORT GIVEN BY NIGHT NURSE BONITA AT THE BEDSIDE. PATIENT SLEEPING THIS TIME. WITH CHRONIC SUPRAPUBIC CATHETER ON DRAINING TO YELLOW URINE. RIGHT FEMORAL TRIPLE LUMEN,NS RUNNING. TOUCH CALL LIGHT AT LEFT SIDE OF FACE NOTED. STABLE. CONTINUE TO MONITOR.
[2018-06-29 07:51] LABS: HEMATOCRIT 40.3 % (36-54); HEMOGLOBIN 13.1 g/dL (14.0-18.0); MEAN CORPUSCULAR HEMOGLOBIN 29 pg (27-31); MEAN CORPUSCULAR HGB CONC 33 % (32-36); MEAN CORPUSCULAR VOLUME 90 fL (79.0-98.0); PLATELET COUNT (AUTO) 177 K/uL (130-430); RED BLOOD CELL COUNT(AUTO) 4.51 MIL/uL (4.2-6.2); RED CELL DISTRIBUTION WIDTH 13.4 % (9.0-15.0); WHITE BLOOD COUNT (AUTO) 17.4 K/uL (4.8-10.8)
[2018-06-29 07:53] LABS: BASOPHILS % (AUTO) 0.1 % (0.0-2.0); LYMPHOCYTES # (AUTO) 0.9 K/uL (1.0-5.5); MONOCYTES # (AUTO) 0.3 K/uL (0.0-1.0); NEUTROPHILS # (AUTO) 16.2 K/uL (1.8-7.7)
[2018-06-29 07:55] LABS: NEUTROPHILS % (AUTO) 92.9 % (40.0-70.0)
[2018-06-29 08:23] LABS: POTASSIUM 4.1 mmol/L (3.5-5.1)
[2018-06-29 08:24] LABS: ALBUMIN 2.9 g/dL (3.4-4.8); CREATININE 0.56 mg/dL (0.55-1.30); FREE T4 (FREE THYROXINE) 1.1 ng/dL (0.6-1.6); TOTAL BILIRUBIN 0.5 mg/dL (0.0-1.0)
[2018-06-29 08:28] VITALS: BP_SYST 122
[2018-06-29] MEDS: LORazepam 1 MG TABLET PO SCH ×2 (08:30→21:03)
--- NOTE | 2018-06-29 08:35 | NUR ---
ATIVAN: ATIVAN 1MG PO GIVEN WITH SMALL SIPS OF WATER.TOLERATED WELL. CALLED RADIOLOGY AND SPOKE WITH CARMEN MONTAÑO TO GIVE PO MEDS WITH SMALL SIPS OF WATER.NO ADVERSE REACTIONS NOTED.
[2018-06-29] MEDS ORDERED: IOHEXOL 350 mgI/mL, 150 ML INFUS..BTL IV ONE (10:28)
--- NOTE | 2018-06-29 10:30 | NUR ---
Ct scan abd/pelvis /Cta with contrast: To radiology per anil and o2 3l/nc,good saturation. malick consented via phone.Tele off as ordered by .
--- NOTE | 2018-06-29 11:00 | NUR ---
BACK FROM RADIOLOGY: PATIENT BACK FROM RADIOLOGY IN STABLE CONDITION. RESUMED DIET ORDERED.
[2018-06-29] MEDS: 0.45% NACL 1,000 ML IV SCH (11:35)
--- NOTE | 2018-06-29 11:41 | NUR ---
pain meds: norco po given as ordered. no adverse reactions noted.
--- NOTE | 2018-06-29 11:42 | NUR ---
WOUND EVALUATION: Late note for 1142 secondary to patient care. Wound Consult received from Dr. Bravo. Thank you, Dr. Bravo, for the consult. Patient received in a [place] Bed with an Isoflex DENIS mattress, awake, alert, and oriented. Patient is unable to turn in bed independently secondary to quadriplegia. Julio Score is a 12. Past Medical History: C3 quadriplegia, Neurogenic Bladder, Suprapubic Catheter, Obesity, Asthma. Recent Labs: WBC 17.4, RBC 4.51, hemoglobin 13.1, hematocrit 40.3, glucose 343, albumin 2.9, PTT 23.4, d-dimer 1740. Microbiology: Blood culture results 2 in progress. Urine culture results in progress. Intrinsic factors that delay wound healing: Asthma, quadriplegia. Extrinsic factors that delay wound healing: Immobility. Wound Assessment: 1. Buttocks: Intertrigo/IAD, present on admission. Site has nonintact skin, with 100% red tissue. No odor, no drainage. Periwound and surrounding tissue has dark discoloration, and slight maceration. Open area measures 3.0 cm x 2.0 cm. Recommend: Cleanse wound with normal saline. Pat dry. Apply moisture barrier cream to wound and joseline-wound. Apply hydrogel to any portion of wound not covered by moisture barrier cream. Cover with Sacral foam dressing. Perform wound care daily, and as needed for dressing soiling or dislodgement. 2. Right heel: Scar tissue, present on admission. 3. Left heel: Scar tissue, present on admission. Recommend: Elevate, offload and float bilateral heels with one pillow lengthwise under each extremity at all times. Do not allow any portion of heels/scar tissue areas to touch bed or other surfaces at any time. Also recommend: Reposition patient [id number] only every 2 hours with pillow support, and off-load pressure areas with pillows for pressure re-distribution. Elevate, offload and float bilateral heels with one pillow lengthwise under each extremity at all times. Do not allow any portion of heels/scar tissue areas to touch bed or other surfaces at any time. Perform skin care and monitor skin integrity Q shift. Use moisture barrier cream on buttocks and other moisture susceptible areas QID and as needed for soiling. Initiate low air-loss therapy.
--- NOTE | 2018-06-29 11:49 | NUR ---
BLOOD SUGAR: BLOOD ZPFPN=902RQ/DL,REGULAR INSULIN 8 UNITS SUBQ GIVEN PER SLIDING SCALE. NO UNTOWARD MANIFESTATIONS NOTED.
[2018-06-29 12:09] VITALS: BP_SYST 121
--- NOTE | 2018-06-29 13:25 | NUR ---
IVPB: DUE IV ZOSYN GIVEN ORDERED. NO UNTOWARD MANIFESTATIONS NOTED.
[2018-06-29] MEDS: GENTAMICIN SULFATE 160 MG in NS 100 ML IV SCH ×2 (15:10→22:28)
--- NOTE | 2018-06-29 15:10 | NUR ---
RN ROUNDS: AT THE BEDSIDE. CALL LIGHT WITH IN REACH. BED LOCKED AT LOWEST POSITION. BED ALARM ON. CONTINUE TO MONITOR.
[2018-06-29 16:47] VITALS: BP_SYST 114
--- NOTE | 2018-06-29 17:23 | NUR ---
BLOOD SUGAR: BLOOD BUUPJ=615MH/DL,REGULAR INSULIN 6 UNITS SUBQ GIVEN PER SLIDING SCALE. NO ADVERSE REACTIONS NOTED.
[2018-06-29] MEDS ORDERED: BISACODYL 10 MG/SUPPOSITORY RC ONE (17:45)
[2018-06-29] MEDS: BACLOFEN 10 MG TABLET PO SCH ×2 (18:15→21:03)
--- NOTE | 2018-06-29 18:15 | NUR ---
METFORMIN NOT GIVEN: METFORMIN NOT GIVEN DUE TO PATIENT HAD CTA WITH IV CONTRAST GIVEN TODAY.HELD METFORMIN PO X 48HOURS PER PROTOCOL. NOTIFIED.
--- NOTE | 2018-06-29 18:55 | NUR ---
DULCOLAX SUPP: DULCOLAX SUPPOSITORY GIVEN VIA RECTUM ORDERED.
--- NOTE | 2018-06-29 18:56 | NUR ---
CLOSING NOTES: FACE TOUCH LIGHT AT RIGHT SIDE OF NECK. BED LOCKED AT LOWEST POSITION. BED ALARM ON. STABLE. IV RATE DECREASED TO 60CC/H ORDERED. PRACTICE GUIDELINES MET THROUGHOUT SHIFT.
--- NOTE | 2018-06-29 19:55 | NUR ---
Initial note: Received report from jay RN. Patient is asleep at this time. Chest rise and fall visible, breathing is even and unlabored on 3L NC. Right femoral triple lumen central line noted receiving 1/2 NS at 60 ML/HR, site flushes well with NS and has good blood return. Suprapubic catheter noted draining yellow urine to gravity. Bed locked in lowest position, side rails raised, bed alarm on. Call light is with patient. Will continue with plan of care.
[2018-06-29 20:55] VITALS: BP_SYST 118
--- NOTE | 2018-06-29 21:11 | NUR ---
Blood glucose: Patient's blood glucose at this time is 277. 6 units regular insulin administered subcutaneously per sliding scale. Patient tolerated well. Call light with patient. Will continue to monitor.
[2018-06-29] MEDS: ENOXAPARIN SODIUM 40 MG/0.4 ML SYRINGE SUBCUT SCH (21:16)
--- NOTE | 2018-06-29 23:17 | NUR ---
Rounds: Patient is laying comfortably in bed, no signs or symptoms of acute distress noted. 3L NC in place, patient tolerating oxygen therapy, respirations even and unlabored. Suprapubic catheter draining yellow urine to gravity. Touch call light with patient. Will continue monitoring.
--- NOTE | 2018-06-30 01:31 | NUR ---
Rounds: Patient is resting in bed with eyes closed, does not show any signs or symptoms of acute distress. 3L NC in place, breathing is even and unlabored. Call light is with patient. Safety, fall precautions in place. Will continue to monitor.
[2018-06-30] MEDS: 0.45% NACL 1,000 ML IV SCH ×2 (02:42→21:45)
[2018-06-30 02:43] VITALS: BP_SYST 127
[2018-06-30] MEDS: HYDROcodone/ACETAMIN 10-325 MG TAB PO SCH ×6 (02:43→23:00)
[2018-06-30] MEDS: IPRATROPIUM/ALBUTEROL SULFATE 3 ML AMPUL.NEB (DUONEB) INH SCH ×6 (02:51→23:12)
--- NOTE | 2018-06-30 03:27 | NUR ---
Rounds: Patent is resting in bed, does not show signs or symptoms of acute distress. Breathing is even, unlabored on 3L NC. Touch call light is with patient. Safety, fall precautions in place. Will continue to monitor
[2018-06-30] MEDS: PIPERACILLIN/TAZO 4.5GM/DEX-IS 100 ML IV SCH ×2 (05:15→13:49)
--- NOTE | 2018-06-30 06:01 | NUR ---
Closing note: Patient is in bed resting comfortably, no acute distress noted. 3L NC remains in place, patient tolerating oxygen therapy well. IV fluids currently infusing to patient's right femoral central line. Suprapubic catheter draining well to gravity. Touch call light to the right of patient's face. All needs met, attended to. Will endorse care to dayshift RN.
[2018-06-30] MEDS: GENTAMICIN SULFATE 160 MG in NS 100 ML IV SCH ×2 (06:25→15:47)
[2018-06-30] MEDS: INSULIN REGULAR, HUMAN 100 UNITS/ML, 10 ML VIAL (novoLIN R) SUBCUT PRN ×2 (06:31→17:11)
--- NOTE | 2018-06-30 07:30 | NUR ---
AM ROUNDS: PATIENT AWAKE DURING ROUNDS.ON 3L/NC,NO DISTRESS. IVF AT RIGHT FEMORAL ON GOING.TOUCH LIGHT AT RIGHT SIDE OF THE FACE NOTED. NO NEEDS THIS TIME. CONTINUE TO MONITOR.
--- NOTE | 2018-06-30 07:38 | NUR ---
ADDED NOTES: WITH SUPRAPUBIC CATHETER DRAINING TO YELLOW URINE WITH SEDIMENTS.
[2018-06-30 09:19] VITALS: BP_SYST 126
[2018-06-30] MEDS: BACLOFEN 10 MG TABLET PO SCH ×5 (09:27→21:00)
[2018-06-30] MEDS: LORazepam 1 MG TABLET PO SCH ×2 (09:27→21:00)
--- NOTE | 2018-06-30 09:29 | NUR ---
MED PASS: DUE PO MEDS GIVEN ORDERED. NO ADVERSE REACTIONS NOTED THIS TIME.
--- NOTE | 2018-06-30 11:00 | NUR ---
NORCO: ROUTINE PO PAIN MEDS GIVEN ORDERED. NO UNTOWARD MANIFESTATIONS NOTED.
--- NOTE | 2018-06-30 11:01 | NUR ---
BLOOD SUGAR: BLOOD GPOAS=900BQ/DL,NO INSULIN COVERAGE NEEDED PER SLIDING SCALE.
[2018-06-30 11:30] VITALS: BP_SYST 111
--- NOTE | 2018-06-30 12:01 | NUR ---
RN ROUNDS: PATIENT RESTING. NO DISTRESS.SUPRAPUBIC CATHETER DRAINING TO [place]H URINE.O2 3L/NC,GOOD SATURATION.CONTINUE TO MONITOR.
--- NOTE | 2018-06-30 13:02 | NUR ---
RN ROUNDS: AT THE BEDSIDE. PATIENT STABLE. NO NEEDS THIS TIME. TOUGH LIGHT AT THE SIDE OF FACE ALL THE TIME.
--- NOTE | 2018-06-30 15:13 | NUR ---
Dietitian Recommendations * Recommend regular diet w/ Ensure Enlive BID (ONS yields 700 kcal/day and 40 gm protein/day) LP, RD Please refer to Nutrition Assessment for details.
--- NOTE | 2018-06-30 15:30 | NUR ---
PAIN MEDS: DUE PO PAIN MEDS GIVEN. NO PROBLEM.
[2018-06-30] MEDS ORDERED: BISACODYL 5 MG TABLET.DR (DULCOLAX) PO PRN (15:45)
[2018-06-30] MEDS: BISACODYL 5 MG TABLET.DR (DULCOLAX) PO ONE ×2 (15:45→17:09)
[2018-06-30] MEDS: DOCUSATE SODIUM 250 MG CAPSULE PO ONE ×2 (15:45→17:09)
--- NOTE | 2018-06-30 15:46 | NUR ---
WOUND CARE: DUE PO PAIN MEDS GIVEN PRIOR TO WOUND CARE. CLEANSE NS INTERTRIGO BUTTOCKS,PAT DRY,APPLIED HYDROGEL/Z-GUARD TO WOUND AREA,BARRIER CREAM TO NESTOR WOUND AREA AND COVERED WITH SACRAL OPTI FOAM GENTLE.
[2018-06-30 15:54] VITALS: BP_SYST 125
--- NOTE | 2018-06-30 15:55 | NUR ---
RT NOTES Pt. mentioned that he would wake up feeling like he needs to catch his breath. Dr Bravo made aware and ordered CPAP at night and as needed. Pt. was educated on CPAP & was encouraged to use at night only to prevent dependency during the day. Will endorse to night stocker. Addendum: 06/30/18 at 1636 by Jannette Jenkins RT Amended: Links added.
--- NOTE | 2018-06-30 16:00 | NUR ---
HHN: BREATHING TREATMENT RENDERED BY RT.
--- NOTE | 2018-06-30 17:00 | NUR ---
BLOOD SUGAR: BLOOD SUGAR TAKEN,REGULAR INSULIN 4 UNITS SUBQ GIVEN PER SLIDING SCALE. NO ADVERSE REACTIONS NOTED.
[2018-06-30] MEDS: AMPICILLIN SODIUM 1 GM in NS 50 ML IV SCH ×2 (17:20→23:20)
--- NOTE | 2018-06-30 17:35 | NUR ---
PAGED: SPOKE WITH DR AUGUSTE,PATIENT C/O CHOKING,NOT ABLE TO COUGH OUT CLEARLY,BREATHING TREATMENT RENDERED BY RT AND DEEP SUCTIONED DONE,OBTAINED MODERATE TO LARGE AMOUNT OF WHITISH COLOR SECRETIONS.WITH ORDERS STAT C-XRAY,FOR SWALLOWING EVAL AND VIDEO FLUOROSCOPY TOMORROW.DIET CHANGED TO PUREED ORDERED.
--- NOTE | 2018-06-30 17:44 | NUR ---
CONSULT SWALLOW SOFIA LEFT FOR HILDA (ST) [phone] @ [phone]
--- NOTE | 2018-06-30 17:50 | NUR ---
CHEST X-RAY: PORTABLE CHEST X-RAY DONE AT BEDSIDE. WAITING FOR THE PRELIMINARY READING.
--- NOTE | 2018-06-30 18:44 | NUR ---
CHEST X-RAY RESULTS: DR AUGUSTE INFORMED ABOUT THE RESULTS OF CHEST X-RAY AND WITH ORDERS,HOLD ALL PO MEDS,DIET CHANGED TO CLEAR LIQUID.
--- NOTE | 2018-06-30 19:20 | NUR ---
OPENING NOTES RECEIVED PATIENT IN BED AAOX4. PATIENT ANXIOUS WITH SHORTNESS OF BREATH. AUDIBLE CONGESTION/CRACKLES NOTED. CALLED RT TO ROOM. SINUS RHYTHM ON TELE MONITOR. PLAN OF CARE REVIEWED WITH PATIENT. CALL LIGHT WITH IN REACH. BED IN LOWEST LOCKED POSITION. SIDE RAILS UP X3.
--- NOTE | 2018-06-30 19:34 | NUR ---
END OF SHIFT: ENDORSED TO NIGHT NURSE BHAVIK.PATIENT WITH MILD EXTERNAL WHEEZING.NIGHT NURSE TO CALL PRN FOR IV MEDS FOR ANXIETY AND PAIN MEDS PER PATIENT'S REQUEST. TOUCH CALL LIGHT BESIDE PATIENT'S FACE.BED LOCKED AT LOWEST POSITION. SUPRAPUBIC CATHETER IN SITU.IVF AT RIGHT FEMORAL LINE INTACT.CONTINUE TO MONITOR.CONDITION GUARDED.
--- NOTE | 2018-06-30 19:35 | NUR ---
MD ORDERS SPOKE WITH DOCTOR AUGUSTE. MADE AWARE OF PATIENT ANXIETY PATIENT REQUESTING MEDICATION NEEDED. NEW ORDERS MADE NOTED AND CARRIED OUT.
[2018-06-30] MEDS ORDERED: IPRATROPIUM/ALBUTEROL SULFATE 3 ML AMPUL.NEB (DUONEB) INH PRN (19:45)
--- NOTE | 2018-06-30 19:50 | NUR ---
BIPAP PATIENT REFUSED BIPAP USE. PATIENT FEELS BETTER AFTER DEEP SUCTIONED BY RT. 02 SAT 100% ON 3L NC.
[2018-06-30] MEDS: DOCUSATE SODIUM 250 MG CAPSULE PO SCH (21:00)
[2018-06-30] MEDS: ENOXAPARIN SODIUM 40 MG/0.4 ML SYRINGE SUBCUT SCH (21:42)
[2018-06-30] MEDS: BISACODYL 10 MG/SUPPOSITORY RC PRN (21:47)
--- NOTE | 2018-06-30 21:47 | NUR ---
BM SMEAR BOWEL MOVEMENT SINCE LAST NIGHT AND THIS MORNING PER REPORT. PATIENT MEDICATED WITH DULCOLAX SUPPOSITORY ORDERED.
[2018-06-30] MEDS: LORazepam 2 MG/ML VIAL IVP PRN (21:58)
--- NOTE | 2018-06-30 21:58 | NUR ---
ANXIETY PATIENT MEDICATED WITH ATIVAN ORDERED FOR C/O ANXIETY.
[2018-06-30 22:38] LABS: HEMATOCRIT 37.2 % (36-54); HEMOGLOBIN 12.1 g/dL (14.0-18.0); MEAN CORPUSCULAR HEMOGLOBIN 30 pg (27-31); MEAN CORPUSCULAR VOLUME 91 fL (79.0-98.0); RED BLOOD CELL COUNT(AUTO) 4.08 MIL/uL (4.2-6.2); WHITE BLOOD COUNT (AUTO) 9.2 K/uL (4.8-10.8)
[2018-06-30 22:39] LABS: MEAN CORPUSCULAR HGB CONC 32 % (32-36); PLATELET COUNT (AUTO) 188 K/uL (130-430); RED CELL DISTRIBUTION WIDTH 13.6 % (9.0-15.0)
[2018-06-30 22:40] LABS: BASOPHILS # (AUTO) 0.2 K/uL (0.0-0.2); BASOPHILS % (AUTO) 2.2 % (0.0-2.0); EOSINOPHILS # (AUTO) 0.2 K/uL (0.0-0.4); EOSINOPHILS % (AUTO) 1.7 % (0.0-4.0); LYMPHOCYTES # (AUTO) 1.5 K/uL (1.0-5.5); LYMPHOCYTES % (AUTO) 16.2 % (20.5-51.5); MONOCYTES # (AUTO) 0.6 K/uL (0.0-1.0); MONOCYTES % (AUTO) 6.3 % (1.7-9.3); NEUTROPHILS # (AUTO) 6.7 K/uL (1.8-7.7); NEUTROPHILS % (AUTO) 73.6 % (40.0-70.0)
--- NOTE | 2018-06-30 22:40 | NUR ---
ENDORSED PATIENT RESTING IN BED. BREATHING UNLABORED ON 02 3L NC. IVF INFUSING ORDERED. CALL LIGHT WITH IN REACH. PATIENT CARE ENDORSED TO MATTIE WAITE.
--- NOTE | 2018-06-30 22:45 | NUR ---
Assumed care Received report. Patient resting in bed. No signs of distress noted. Patient on 3 L NC, tolerating well. Central line intact and infusing fluids as ordered. Suprapubic catheter intact. Head call light is with the patient. Safety precautions in place.
[2018-06-30 22:47] LABS: POTASSIUM 3.4 mmol/L (3.5-5.1)
[2018-06-30 22:48] LABS: CREATININE 0.57 mg/dL (0.55-1.30)
--- NOTE | 2018-06-30 23:14 | NUR ---
PAGED PAGED DOCTOR MACE
--- NOTE | 2018-06-30 23:15 | NUR ---
Spoke to Updated Dr. Kelsey regarding gentamicin trough level 2.5. No new orders.
[2018-06-30 23:18] VITALS: BP_SYST 155
[2018-06-30] MEDS: MORPHINE 4 MG/ML INJ. SYRINGE IVP PRN (23:19)
--- NOTE | 2018-06-30 23:48 | NUR ---
Respiratory RT tried using full face CPAP mask. Patient was not tolerating well. RT tried Nasal CPAP. Patient does not like it. Patient back on Nasal cannula 3 L. Tolerating well.
--- NOTE | 2018-07-01 00:41 | NUR ---
Dressing change Patient had bowel movement. Changed dressing to sacrum. Cleansed wound with normal saline. Pat dry. Applied moisture barrier cream to wound and joseline-wound. Applied hydrogel wound. Covered with sacral foam dressing. Patient tolerated well.
--- NOTE | 2018-07-01 02:47 | NUR ---
RN rounds Patient asleep in bed. No signs of distress noted. Head call light with the patient.
[2018-07-01] MEDS: HYDROcodone/ACETAMIN 10-325 MG TAB PO SCH ×6 (03:00→23:46)
[2018-07-01] MEDS: IPRATROPIUM/ALBUTEROL SULFATE 3 ML AMPUL.NEB (DUONEB) INH SCH ×6 (04:21→22:50)
--- NOTE | 2018-07-01 04:56 | NUR ---
RN rounds Patient sleeping in bed. No signs of distress noted. Touch call light is with the patient. Safety precautions in place.
[2018-07-01] MEDS: AMPICILLIN SODIUM 1 GM in NS 50 ML IV SCH ×4 (05:58→23:47)
[2018-07-01] MEDS: MORPHINE 4 MG/ML INJ. SYRINGE IVP PRN (06:35)
--- NOTE | 2018-07-01 06:45 | NUR ---
Closing notes Medicated patient with prn pain medication. No signs of allergic reaction. Educated the action and side effects. Patient verbalized understanding. No signs of distress noted. No SOB noted. Patient on 3 L NC, tolerating well. Suprapubic catheter intact. Central line patent and intact. All needs met. Practice guidelines met throughout the shift. Touch call light with the patient. Safety precautions in place. Will endorse care to day shift RN.
[2018-07-01 07:30] VITALS: BP_SYST 156
--- NOTE | 2018-07-01 08:00 | NUR ---
AM NOTES Patient laying in bed resting. No s/s of distress or SOB, patient saturating 98% on O2 3lpm/NC. Patient oriented to room routine, bed in lowest position, call light within reach/by neck. PICC line patent, intact, dressing is dry and intact. Walls back patent, draining sallie colored urine to gravity.
[2018-07-01] MEDS: LORazepam 2 MG/ML VIAL IVP PRN ×2 (08:43→13:32)
[2018-07-01] MEDS: DOCUSATE SODIUM 250 MG CAPSULE PO SCH ×2 (09:00→20:58)
[2018-07-01] MEDS: LORazepam 1 MG TABLET PO SCH ×2 (09:00→20:55)
[2018-07-01] MEDS: BACLOFEN 10 MG TABLET PO SCH ×4 (09:00→20:54)
--- NOTE | 2018-07-01 09:00 | NUR ---
MORNING PO MEDS Morning PO meds held per MD order.
[2018-07-01] MEDS: 0.45% NACL 1,000 ML IV SCH (11:04)
[2018-07-01 11:31] VITALS: BP_SYST 150
--- NOTE | 2018-07-01 12:34 | NUR ---
S.T. SWALLOW EVAL AND VIDEO SWALLOW STUDY COMPLETED ORDERED. SWALLOW EVAL: PT PRESENTS W/ FUNCTIONAL OROPHARYNGEAL SWALLOW W/ NO S/S OF ASPIRATION. PROCEED WITH VIDEO SWALLOW STUDY ORDERED. VIDEO SWALLOW STUDY: PT PRESENTS W/ FUNCTIONAL OROPHARYNGEAL SWALLOW W/ NO RESIDUE OR ASPIRATION. REC: REGULAR DIET. THIN LIQUIDS OK. NURSE NATASHA NOTIFIED. PT IN AGREEMENT W/ RESULTS AND REC. [id number] CH [id number] CH [id number] NOMS LEVEL 7
--- NOTE | 2018-07-01 13:00 | NUR ---
SPOKE WITH DR. AUGUSTE Regarding swallow eval results. MD changed diet to Mechanical Soft, and ok'd to continue PO meds.
[2018-07-01] MEDS ORDERED: POTASSIUM CHLORIDE 40 MEQ in NS 250 ML IV ONE (13:45)
--- NOTE | 2018-07-01 14:30 | NUR ---
WOUND CARE Wound care done. Pictures taken per hospital protocol.
--- NOTE | 2018-07-01 15:12 | NUR ---
ROUNDS Patient laying in bed resting. No s/s of distress or SOB. All needs being met. Bed in lowest position, call light within reach.
[2018-07-01 15:40] VITALS: BP_SYST 145
--- NOTE | 2018-07-01 16:00 | NUR ---
MD VISIT Dr. Bravo at bedside to see patient.
--- NOTE | 2018-07-01 16:10 | NUR ---
SUPRAPUBIC CATHETER of patient states she wants patient's suprapubic catheter to be changed prior to discharge because patient missed his Urology appointment due to being in the hospital. Per hospital protocol, RN's do not insert/change this type of catheter. Urology consult ordered by .
--- NOTE | 2018-07-01 16:21 | NUR ---
Urology consult called: for Dr. Verma, regarding changing suprapubic catheter, ordered by Dr. Bravo, spoke with Wendie. I was told that they do not take patients insurance.
[2018-07-01] MEDS: metFORMIN HCL 500 MG TABLET PO SCH (18:29)
--- NOTE | 2018-07-01 18:30 | NUR ---
METFORMIN Patient educated on indications, S/E and benefits of Metformin. Patient verbalized understanding.
--- NOTE | 2018-07-01 18:33 | NUR ---
CLOSING NOTES Patient laying in bed resting. No s/s of distress or SOB. Patient saturating 98% on O2 3lpm/NC. All needs met throughout shift. Safety and fall precautions maintained. PICC line patent, intact, dressing is dry. Suprapubic catheter patent, dressing is dry, sallie colored urine draining to gravity. Bed in lowest position, call light within reach. Will endorse to oncoming RN.
--- NOTE | 2018-07-01 19:15 | NUR ---
CHANGE OF SHIFT: pt. awake, alert and resting when received. in no acute distress. IVF infusing with 1/2 NS @ 60 cc/hr via PICC line on rt. femoral. pt. is quadriplegic. denies any discomfort at this time, special call light at his side of the head.
[2018-07-01 20:00] VITALS: BP_SYST 157
--- NOTE | 2018-07-01 20:00 | NUR ---
NOTES: pt. checked, breathing treatment in progress. kept O2 2 2l/nc. occ. bouts of non productive cough. IV infusing, cardiac pattern sinus rhythm, abdomen distended, with suprapubic catheter to OSD, yellow urine output. some swelling note don both lower extremities, sequential on, both legs/feet elevated with pillows, on special air mattress, sacral wound , dressing intact. pt. unable to move all extremities due to quadriplegia. pt. verbally responsive.
--- NOTE | 2018-07-01 21:00 | NUR ---
NOTES: due po meds able to swallow with some sips of water. noted some muscle spasm whenever pt. stimulated or have some kind of movements, repositioned on his side. noted some occ. bouts of non productive cough. Blood sugar checked 130, no sliding scale coverage.
[2018-07-01] MEDS: ENOXAPARIN SODIUM 40 MG/0.4 ML SYRINGE SUBCUT SCH (21:09)
--- NOTE | 2018-07-01 23:04 | NUR ---
NOTES: RT tried to put pt. on CPAP but pt. refused.
[2018-07-01 23:21] VITALS: BP_SYST 131
--- NOTE | 2018-07-02 00:01 | NUR ---
NOTES: pt. awakened for due medications, does not want to be turn at this time. checked for BM, pretty dry. condition guarded.
--- NOTE | 2018-07-02 01:51 | NUR ---
NOTES: O2 out ,placed back on his nostrils. O2 sat 96%.
[2018-07-02] MEDS: IPRATROPIUM/ALBUTEROL SULFATE 3 ML AMPUL.NEB (DUONEB) INH SCH ×6 (02:01→23:23)
[2018-07-02] MEDS: HYDROcodone/ACETAMIN 10-325 MG TAB PO SCH ×6 (03:10→23:45)
--- NOTE | 2018-07-02 03:12 | NUR ---
NOTES: awakened pt. and due medication given still with neck pain scale 8/10. repositioned and kept warm with blanket. cardiac pattern unchanged.
--- NOTE | 2018-07-02 04:05 | NUR ---
NOTES: condition observed. sleeping when made rounds.
--- NOTE | 2018-07-02 05:45 | NUR ---
NOTES: awakened and repositioned. no BM, sacral wound dressing intact. with some generalized edema. IV patent with due antibiotic in progress. O2 maintained @ 2l/nc. suprapubic catheter intact and draining some old tinged bld. and yellow urine.
[2018-07-02] MEDS: AMPICILLIN SODIUM 1 GM in NS 50 ML IV SCH ×4 (05:47→23:45)
--- NOTE | 2018-07-02 06:50 | NUR ---
CLOSING NOTES: Blood sugar checked 112. O2 kept @ 2l/nc. IV patent. supra pubic catheter intact. for further care, observation and assistance. special call light at bedside. will endorse to incoming shift. in no distress.
--- NOTE | 2018-07-02 07:05 | NUR ---
endorsed pt. to incoming shift with nurse Kang.
[2018-07-02 07:30] VITALS: BP_SYST 154
--- NOTE | 2018-07-02 07:47 | NUR ---
AM NOTES Patient laying in bed resting. No s/s of distress or SOB, patient saturating 99% on O2 3lpm/NC. Patient oriented to room routine, bed in lowest position, call light within reach (by neck). PICC line patent, intact, dressing is dry and intact. Suprapubic catheter patent, intact, draining urine to gravity.
[2018-07-02 08:06] LABS: CALCIUM 9.1 mg/dL (8.4-11.0); POTASSIUM 3.5 mmol/L (3.5-5.1)
[2018-07-02 08:07] LABS: CREATININE 0.35 mg/dL (0.55-1.30)
[2018-07-02] MEDS: metFORMIN HCL 500 MG TABLET PO SCH ×3 (08:09→18:20)
[2018-07-02] MEDS: DOCUSATE SODIUM 250 MG CAPSULE PO SCH ×2 (08:09→20:25)
[2018-07-02] MEDS: LORazepam 1 MG TABLET PO SCH ×2 (08:09→20:26)
[2018-07-02] MEDS: BACLOFEN 10 MG TABLET PO SCH ×4 (08:09→20:26)
--- NOTE | 2018-07-02 09:20 | NUR ---
MD VISIT Dr. Villar at bedside to see patient.
--- NOTE | 2018-07-02 09:47 | NUR ---
DC PLANNING Order for dc to rehab/[facility]. Spoke w pt@bedside, agreeable w plan but only for [facility]. Per pt goes to [facility], that's where his PCP is. Updated corbin Lopez planner internship. Addendum: 07/02/18 at 1112 by Aviva Solo RN Discussed dc plan w [place] Bravo [place] [facility], IV abx not needed switching to po abx. Order to dc home w home health for dz mgt. Spoke w pt @ bedside & agreeable, does not know if has home health states to call . Called & spoke w Milvia, ph [phone], informed of order & agreeable, she will be able to cone picker pt. States does not have any Home Health, agreeable w w no preference. Called [facility], ph [phone] fax [phone], states that do have contract w [facility] to fax pt info to attn: Derian or Dakota in intake. Faxed pt info, updated corbin Lopez planner internship.
--- NOTE | 2018-07-02 10:30 | NUR ---
MD VISIT Dr. Bravo at bedside to see patient.
[2018-07-02] MEDS: LORazepam 2 MG/ML VIAL IVP PRN ×2 (11:16→18:14)
[2018-07-02] MEDS: ONDANSETRON HCL 4 MG/2 ML VIAL IVP PRN (11:16)
[2018-07-02 12:05] VITALS: BP_SYST 146
--- NOTE | 2018-07-02 12:05 | NUR ---
ROUNDS Patient laying in bed resting, no s/s of distress or SOB. All needs being met. Safety and fall precautions in place. Bed in lowest position, call light within reach. Will cont. to monitor.
[2018-07-02] MEDS ORDERED: GLU500 PO (12:27)
[2018-07-02] MEDS ORDERED: AMOX500C2 PO (12:29)
[2018-07-02] MEDS ORDERED: LACT1CAP71 PO (12:30)
[2018-07-02] MEDS ORDERED: L.RH1CAP PO (12:31)
--- NOTE | 2018-07-02 12:35 | NUR ---
SPOKE WITH DR. AUGUSTE Regarding D/C. aware that there is blood in abrams bag. MD ordered to hold D/C and have patient consult with Urologist that will accept patient's insurance.
--- NOTE | 2018-07-02 13:16 | NUR ---
CONSULTATION PAGED/CALLED Reason for Consultation: [] HEMATURIA; CHANGE SUPRAPUBIC CATHETER Person Who was Notified: [] GEENA Consulting Physician: [] Melvi CASTRO Supervisor Extruding Department Specialty: [] UROLOGIST Ordering Physician: [] DR AUGUSTE
--- NOTE | 2018-07-02 13:44 | NUR ---
Uro can not see pt: Dr. Zavaleta has called for Dr. Miles group and said he can not see the patient due the insurance. Aviva, a case mgr, is informed.
--- NOTE | 2018-07-02 13:58 | NUR ---
Discharge Planning: DCP faxed to [facility] (f [phone] p [phone]) accepted patient and will do wound care and suprapubic care/change dressing.
--- NOTE | 2018-07-02 14:30 | NUR ---
WOUND CARE Wound care done. Hygiene care and incontinence care done. Patient tolerated procedure well. Addendum: 07/02/18 at 1535 by Treasure Welch RN WOUND CARE Cleansed with NS, pat dry, hydrogel applied to wound bed, moisture barrier cream applied to periwound, covered with foam dressing. Wound is red/pink, macerated periwound, no drainage no odor.
[2018-07-02 16:19] VITALS: BP_SYST 106
[2018-07-02] MEDS: INSULIN REGULAR, HUMAN 100 UNITS/ML, 10 ML VIAL (novoLIN R) SUBCUT PRN (17:38)
--- NOTE | 2018-07-02 18:34 | NUR ---
CLOSING NOTES Patient laying in bed resting. No s/s of distress or SOB. All needs met throughout shift. Safety and fall precautions maintained. PICC line patent, intact, dressing is dry. Suprapubic catheter patent, dressing is dry, bloody urine draining to gravity. Teaching regarding DM given, patient verbalized understanding, reinforcement teaching needed. Bed in lowest position, call light within reach. Will endorse to oncoming RN.
--- NOTE | 2018-07-02 19:20 | NUR ---
CHANGE OF SHIFT: pt. awake,alert and oriented, pt. feeling warm, denies any pain at this time. safety precautions observed. special call light within reach, unable to move all extremities sec. to quadriplegia. O2 @ 2l/nc. in no distress.
[2018-07-02] MEDS: BISACODYL 10 MG/SUPPOSITORY RC PRN (20:26)
[2018-07-02 20:30] VITALS: BP_SYST 137
--- NOTE | 2018-07-02 20:30 | NUR ---
NOTES: pt. requesting for Dulcolax supp.and given, pt. repositioned, back care done. sacral wound dressing intact. both lower extremities with edema, sequential compressor on. both legs elevated with pillows, on air mattress. PICC line on rt. femoral, for IV antibiotic infusion. O2 @ 2l/nc. denies any shortness of breath. cardiac pattern on sinus rhythm. abdomen distended. with supra pubic catheter to osd with dark bloody urine. pt. needs attended. special call light within reach.
--- NOTE | 2018-07-02 21:00 | NUR ---
NOTES: paged Dr. Bravo and return the call and informed him about the bloody urine, order to stop Lovenox and PT/INR in am.
--- NOTE | 2018-07-02 23:00 | NUR ---
NOTES: pt. sleeping when checked. condition guarded.
[2018-07-03] VITALS (9 sets, daily range): BP systolic 99–138
--- NOTE | 2018-07-03 00:15 | NUR ---
NOTES: complete bath given with ASSOCIATE STORE LEADER, had large amts. of loose dark stool. Triad cream applied after on the perianal area. sacral dressing changed. repositioned. Addendum: 07/03/18 at 0158 by Arlyn Mccallum RN suprapubic catheter site cleanse with soap and water and applied a new gauze dressing.
[2018-07-03] MEDS: IPRATROPIUM/ALBUTEROL SULFATE 3 ML AMPUL.NEB (DUONEB) INH SCH ×6 (03:00→22:52)
[2018-07-03] MEDS: HYDROcodone/ACETAMIN 10-325 MG TAB PO SCH ×6 (03:01→22:30)
--- NOTE | 2018-07-03 03:04 | NUR ---
NOTES: pt. awakened and repositioned. noted some occ. bouts of non productive cough. urine still bloody with good urine output. po medication for pain given as scheduled for c/o neck pain and some headache. continue to monitor.
--- NOTE | 2018-07-03 05:19 | NUR ---
NOTES: remain asleep when checked. in no distress.
[2018-07-03] MEDS: AMPICILLIN SODIUM 1 GM in NS 50 ML IV SCH ×4 (05:54→23:53)
--- NOTE | 2018-07-03 06:30 | NUR ---
CLOSING NOTES; pt. awakened, repositioned. BS checked. IV site intact and patent. supra pubic cath in place, still with bloody urine. O2 @ 2l/nc. PICC line on rt. femoral. needs attended, sacral wound dressing intact. special call light in place. for further care, assistance and observation.
--- NOTE | 2018-07-03 07:20 | NUR ---
Initial Note Received patient from radiologic technology program director nurse, Patient currently resting in bed with eyes closed, no signs of respiratory distress noted at this time. Patient is currently on 2l of NC sating well, PICC line noted on right femoral, dressing, dry clean and intact. Suprapubic catheter currently in place, draining blood tinged urine, MD aware. Touch Call light within reach. HOB elvated, will continue to monitor for safety.
--- NOTE | 2018-07-03 07:25 | NUR ---
endorsed pt. to to nurse Raines.
[2018-07-03 08:26] LABS: INR 0.9 (0.80-1.20); PROTHROMBIN TIME 9.3 SECS (9.5-12.5)
[2018-07-03] MEDS: metFORMIN HCL 500 MG TABLET PO SCH ×2 (09:13→18:00)
[2018-07-03] MEDS: BACLOFEN 10 MG TABLET PO SCH ×4 (09:13→22:31)
[2018-07-03] MEDS: LORazepam 1 MG TABLET PO SCH ×2 (09:13→22:31)
[2018-07-03] MEDS: DOCUSATE SODIUM 250 MG CAPSULE PO SCH ×2 (09:13→22:30)
--- NOTE | 2018-07-03 09:17 | NUR ---
Medication Educated patient on potential side effects of Ativan, patient verbalized understanding, will continue to monitor.
[2018-07-03] MEDS ORDERED: NACL 0.9% 1,000 ML IV ONE (10:30)
--- NOTE | 2018-07-03 10:41 | NUR ---
CONSULTATION PAGED REASON FOR CONSULTATION:HEMATURIA, CHANGE SUPRAPUBIC CATHETER WAS CONSULT CALLED?Y PERSON WHO WAS NOTIFIED:JOSE RAUL CONSULTING PHYSICIAN:KAYLEY TRIPLETT CENTRAL SUPPLY NURSE SPECIALTY:UROLOGY CENTRAL SUPPLY NURSE PHONE NUMBER:[phone] REQUESTING PHYSICIAN:YUE SOARES
--- NOTE | 2018-07-03 10:49 | NUR ---
Call back from Dr. Tovar exchange spoke with Radha, she stated that Dr. Tovar does not accept patient's insurance, informed Radha to have Dr. Tovar speak with hospital Nursing Department Chairperson or Administration regarding hospital authorization to pay for consultation.
--- NOTE | 2018-07-03 10:58 | NUR ---
Low B/P Notified Dr. Bravo that patient's bp was 87/44, 1L bolus of NS was ordered, around 10:30 bp increased to 96/62. Will continue to monitor.
[2018-07-03] MEDS: ONDANSETRON HCL 4 MG/2 ML VIAL IVP PRN (11:04)
--- NOTE | 2018-07-03 12:30 | NUR ---
DR. VALARIE Tovar here to see patient, Dr. Tovar irrigated patient's bladder with 3L of NS. Patient tolerated well.
--- NOTE | 2018-07-03 12:40 | NUR ---
RN ROUNDS Patient given prn pain medication for shoulder pain, will continue to monitor.
--- NOTE | 2018-07-03 14:00 | NUR ---
RN ROUNDS Patient resting in bed with eyes closed, hob elevated, fall precautions in place, will continue to monitor.
--- NOTE | 2018-07-03 16:07 | NUR ---
Wound Care Patient changed and repositioned, wound care done per would care recommendations
[2018-07-03] MEDS: NACL 0.9% 1,000 ML IV SCH (16:18)
[2018-07-03] MEDS: LORazepam 2 MG/ML VIAL IVP PRN (16:50)
--- NOTE | 2018-07-03 16:53 | NUR ---
RN ROUNDS Patient given prn antianxiety medication, no other needs at this time, will continue to monitor.
[2018-07-03] MEDS: MORPHINE 4 MG/ML INJ. SYRINGE IVP PRN (18:17)
--- NOTE | 2018-07-03 18:22 | NUR ---
CLOSING NOTE Patient refused Piercy pain medication because he states his pain is higher and would rather have IV pain medication. Morphine giving to patient, patient in stable condition, no signs of respiratory distress noted, vital signs stable, bed in lowest position, side rails up, bed alarm on. Fall precautions in place, will endorse patient to on coming nurse.
--- NOTE | 2018-07-03 19:15 | NUR ---
OPENING NOTE Patient resting in the bed and watching TV. No acute distress. Respiration even and unlabored. On O2 2L/min via NC. AAO x 4. No c/o pain at this time. Skin warm and dry to touch. PICC line intact to right femoral, no redness, no swelling, no drainage. On NS at 100ml/hr, infusing well. Suprapubic catheter intact, drain gravity with pinkish color of output. Discussed the safety issue, use call light when need help, and plan of care, verbally understanding. Safety measure maintained. Call light attached to mattress next to patient's head. Patient able to turn the head to hit the call light. Bed locked in low position, side rails up, bed alarm on. Will continue to monitor.
--- NOTE | 2018-07-03 21:00 | NUR ---
FAMILY AT BEDSIDE Patient resting in the bed comfortable. No acute distress. Continue on O2 2L/min via NC. Family visited and talked to patient at bedside. Safety measure maintained. Bed locked in low position, side rails up, bed alarm on. Call light next to patient's head. Continue to monitor.
--- NOTE | 2018-07-03 22:32 | NUR ---
TH=034 Patient resting in the bed and watching TV. No acute distress. Continue on O2 2L/min via NC. CT=724, no insulin coverage needed per sliding scale. Safety measure maintained. Call light attached to mattress next to patient;s head. Continue to monitor.
--- NOTE | 2018-07-04 00:30 | NUR ---
ROUND Patient resting in the bed with eyes closed. No acute distress. Respiration even and unlabored. Continue on O2 2L/min via NC. PICC line intact, IVF infusing well. Suprapubic catheter intact, drain pinkish color output. Safety measure maintained. Bed locked in low position, side rails up, bed alarm on. Call light attached to mattress next to patient's head. Continue to monitor.
--- NOTE | 2018-07-04 02:05 | NUR ---
TURNED AND REPOSITIONED Patient resting in the bed. Turned and repositioned. No acute distress. No c/o pain. Continue on O2 2L/min via NC. Safety measure maintained. Call light attached to mattress next to patient's head. Bed locked in low position, side rails up. Continue to monitor.
[2018-07-04 02:12] VITALS: BP_SYST 89
[2018-07-04] MEDS: NACL 0.9% 1,000 ML IV SCH ×2 (02:14→12:30)
[2018-07-04 02:47] VITALS: BP_SYST 112
[2018-07-04] MEDS: HYDROcodone/ACETAMIN 10-325 MG TAB PO SCH ×4 (03:00→15:00)
[2018-07-04] MEDS: IPRATROPIUM/ALBUTEROL SULFATE 3 ML AMPUL.NEB (DUONEB) INH SCH ×4 (03:00→15:20)
--- NOTE | 2018-07-04 03:47 | NUR ---
REFUSED SCHEDULE NORCO Patient resting in the bed comfortable. No acute distress. Respiration even and unlabored. Continue on O2 2L/min via NC. PICC intact, IVF infusing well. Suprapubic catheter intact, drain gravity with pinkish output. Refused schedule [place] 10/325mg at this time. Safety measure maintained. Call light attached to mattress next to patient's head. Bed locked in low position, side rails up, bed alarm on. Continue to monitor.
[2018-07-04] MEDS: AMPICILLIN SODIUM 1 GM in NS 50 ML IV SCH ×2 (06:42→11:21)
--- NOTE | 2018-07-04 06:58 | NUR ---
CLOSING NOTE Patient resting in the bed. No SOB. On O2 2L/min via NC. Receiving breathing treatment at this time. No c/o pain at this time. Skin warm and dry to touch. PICC line intact to right femoral, no redness, no swelling, no drainage. IVF infusing well. Suprapubic catheter intact, drain gravity with pinkish color of output. All needs met. Hourly rounding during shift. Safety measure maintained. Call light attached to mattress next to patient's head. Patient able to turn the head to hit the call light. Bed locked in low position, side rails up, bed alarm on. Will endorse to morning shift nurse.
[2018-07-04 07:40] LABS: EOSINOPHILS # (AUTO) 0.4 K/uL (0.0-0.4); EOSINOPHILS % (AUTO) 4.2 % (0.0-4.0); HEMATOCRIT 30.5 % (36-54); HEMOGLOBIN 9.9 g/dL (14.0-18.0); LYMPHOCYTES # (AUTO) 1.4 K/uL (1.0-5.5); LYMPHOCYTES % (AUTO) 16.2 % (20.5-51.5); MEAN CORPUSCULAR HEMOGLOBIN 29 pg (27-31); MEAN CORPUSCULAR HGB CONC 32 % (32-36); MEAN CORPUSCULAR VOLUME 90 fL (79.0-98.0); MONOCYTES # (AUTO) 0.5 K/uL (0.0-1.0); MONOCYTES % (AUTO) 5.4 % (1.7-9.3); PLATELET COUNT (AUTO) 225 K/uL (130-430); RED CELL DISTRIBUTION WIDTH 12.8 % (9.0-15.0); WHITE BLOOD COUNT (AUTO) 8.8 K/uL (4.8-10.8)
[2018-07-04 07:43] LABS: CALCIUM 8.5 mg/dL (8.4-11.0); CREATININE 0.3 mg/dL (0.55-1.30); POTASSIUM 3.4 mmol/L (3.5-5.1)
[2018-07-04 07:56] LABS: BASOPHILS % (AUTO) 0.2 % (0.0-2.0)
[2018-07-04 07:57] LABS: NEUTROPHILS # (AUTO) 6.5 K/uL (1.8-7.7)
[2018-07-04 08:00] VITALS: BP_SYST 111
--- NOTE | 2018-07-04 08:02 | NUR ---
A/OX4. No signs of respiratory distress noted at this time. SR on monitor. On 2L, satting at 96-98%, PICC line noted on right femoral, dressing CDI. Suprapubic catheter currently in place, draining straw colored urine. Call light in place, bed locked at the lowest position, will continue to monitor
[2018-07-04] MEDS: LORazepam 1 MG TABLET PO SCH (08:37)
[2018-07-04] MEDS: DOCUSATE SODIUM 250 MG CAPSULE PO SCH (08:38)
[2018-07-04] MEDS: BACLOFEN 10 MG TABLET PO SCH ×3 (08:38→17:00)
--- NOTE | 2018-07-04 10:28 | NUR ---
DC Planning: Dr. Tovar saw the pt and changed suprapubic cath last night. RAVINDRA Angulo made aware and to clarify with MD for discharge. The home health was already set up. Please see DCP note.
[2018-07-04] MEDS ORDERED: POTASSIUM CHLORIDE 20 MEQ/PKT PACKET PO ONE (11:00)
--- NOTE | 2018-07-04 11:00 | NUR ---
DR. AUGUSTE CALLS BACK, AND STATES HE WILL SEE PATIENT TO MAKE A DECISION.
[2018-07-04 11:22] VITALS: BP_SYST 95
--- NOTE | 2018-07-04 11:33 | NUR ---
BLOOD SUGAR 101. NO COVERAGE NEEDED.
[2018-07-04 15:12] VITALS: BP_SYST 95
--- NOTE | 2018-07-04 15:13 | NUR ---
DC Planning: BARTOLO with [facility] / Marcela for [employer] [facility] p [phone], notified pt is being discharged home today and will need visiting nurse f/u by Friday. Addendum: 07/04/18 at 1543 by Marcus Tomlinson RN >> Called back from [facility] , confirmed to send visiting to see the pt. on Friday.--RAVINDRA Angulo made aware.
[2018-07-04 15:31] VITALS: BP_SYST 106
--- NOTE | 2018-07-04 17:11 | NUR ---
Nutrition F/U Admitting Diagnosis Sepsis Reviewed Pertinent Medical/Surgical Hx Medical Record Patient Primary RN Medical History Comment: PMH: C-3 quadriplegia, neurogenic bladder/suprapubic catheter, obesity, asthma per MD notes 07/04/18 MD Progress Notes: sepsis and septic shock, UTI/hemorrhagic cystitis, hematuria, asthma exacerbation, new onset DM, quadriplegia, hypokalemia, sacral decub, mild anemia, mild protein malnutrition, sacral decub Subjective Information Pt was seen by ST for swallow eval and VSFF -- rec for regular diet w/ thin liquids. Plans for D/C home per RN report. Pt reported that he has had a lack of appetite d/t lack of preference for foods provided. RD educated pt on importance of carb counting for proper BG control. Handouts left at bedside -- pt stated to F/U w/ pt's to educate on diabetic diet. RD phone pt's Milvia at , and spoke w/ her regarding diabetic teaching. Please refer interdisciplinary teaching record for details. Pt is not yet meeting optimal nutritional needs. RD encouraged pt to increase PO intakes of wholesome foods rich in green leafy vegetables and lean proteins. RD also encouraged use of Glucerna BID while pt is not eating well. Current Diet Order/Nutrition Support CCHO, Glucerna BID x 1 day Patient/Significant Other Able To Verbalize Education Provided Indicated Pertinent Medications colace, zofran, dulcolax suppository, SSI Pertinent Labs BG 404 H, POC BG 101 H, WBC 8.8 WNL (improved), K 3.4 L, BUN 7 L, CRE 0.3 L, HgA1c 8.1 H, ALB 2.9 L Height (Feet) 5 feet Height (Inches) 10.00 inches Weight (Pounds) 227 pounds (06/30/18) Weight (Calculated Kilograms) 102.825338 kilograms Patient Weight 102.965 kg Body Mass Index 32.57 kg/m2 Usual Weight 200 lbs %UBW 114 %IBW 137 [place]/Adjusted Body Weight IBW: 166 lb, 75 kg. Adj IBW (obesity): 181 lb, 82 kg Recent Weight Change Yes Weight Status Obese Gastrointestinal Symptoms None Last BM Jun 29, 2018 Food Allergies No Usual Diet At Home Regular Skin Integrity Comment: Julio scale: 14; per Associate Professor Of Literacy note 06/29/18: 1. Buttocks: Intertrigo/IAD, present on admission. 2. Right heel: Scar tissue, present on admission. 3. Left heel: Scar tissue, present on admission. Current % PO Negligible -- 9% average x10 meals Estimated Energy Expenditure (kcals/day) 9246-6052 kcal/day (30-35 kcal/kg Adj IBW for sepsis) Estimated Protein Required (g/day) 123-164 gm/day (1.5-2 gm/kg Adj IBW for sepsis) Estimated Fluid Required (l/day) 3 L/day (30 ml/kg CBW for maintenance) Problem/Etiology/Signs/Symptoms Suboptimal PO intakes related to lack of appetite as evidenced by fair PO intakes records. *ongoing Expected Outcomes/Goals - Monitor appetite and PO intakes w/ goal of pt meeting at least 75% of estimated nutritional needs, labs trending WNL, normal GI function, and skin integrity/wt maintenance Dietitian Recommendations * Recommend CCHO diet w/ Glucerna BID (ONS yields 440 kcal/day and 20 gm protein/day) Follow Up Mod Risk: F/U in 3-5 days Addendum: 07/04/18 at [address] CORRECTION: Follow Up High Risk: F/U in 2-3 days
--- NOTE | 2018-07-04 17:22 | NUR ---
Dietitian Recommendations * Recommend [facility] diet w/ Glucerna BID (ONS yields 440 kcal/day and 20 gm protein/day) LP, RD Please refer to Nutrition F/U for details.
--- NOTE | 2018-07-04 17:49 | NUR ---
D/C Patient Patient given medication reconciliation form and D/C instructions. Exit Care provided. Patient verbalized understanding. MD discussed with patient the results and treatment provided. Ambulatory with steady gait for discharge to home. Patient in stable condition, ID band removed. IV catheter removed, intact and dressing applied, no active bleeding. Rx of AMOXICILLIN IS given. Patient educated on pain management. All belongings sent with patient.
--- NOTE | 2018-07-07 11:47 | NUR ---
Discharge Follow Up Phone Call [employer]ANKET [employer]ER phoned patient's and caregiver, . The voicemail was full. BLANKET WEAVER phoned [facility] and spoke with Josi. She stated they were unable to begin services as patient was admitted to [facility] for wound care on 07/06/18. No further calls will be made.
== END 2018-07-04 17:49 | disposition home health service (06) | DRG 720 ==
LOC: SED 11:43 → STU 14:09 → SMU 15:45 → STU 17:09
PROVIDERS: ADMIT Internal Medicine; ATTEND Internal Medicine
PROC: 06HM33Z Insertion of Infusion Device into Right Femoral Vein, Percutaneous Approach (ICD-10-PCS; 2018-06-28)
PROC: B54BZZA Ultrasonography of Right Lower Extremity Veins, Guidance (ICD-10-PCS; 2018-06-28)
PROC: 0T2BX0Z Change Drainage Device in Bladder, External Approach (ICD-10-PCS; principal; 2018-07-03)
DX: A41.9 Sepsis, unspecified organism (principal); R65.21 Severe sepsis with septic shock; G82.50 Quadriplegia, unspecified; L89.152 Pressure ulcer of sacral region, stage 2; E44.1 Mild protein-calorie malnutrition; J45.901 Unspecified asthma with (acute) exacerbation; E66.01 Morbid (severe) obesity due to excess calories; E87.1 Hypo-osmolality and hyponatremia; N31.9 Neuromuscular dysfunction of bladder, unspecified; B95.1 Streptococcus, group B, as the cause of diseases classified elsewhere; F41.9 Anxiety disorder, unspecified; G47.33 Obstructive sleep apnea (adult) (pediatric); E87.6 Hypokalemia; D64.9 Anemia, unspecified; E11.9 Type 2 diabetes mellitus without complications; N30.91 Cystitis, unspecified with hematuria; Z74.01 Bed confinement status; Z87.440 Personal history of urinary (tract) infections; Z87.891 Personal history of nicotine dependence; Z68.32 Body mass index [BMI] 32.0-32.9, adult; Z87.81 Personal history of (healed) traumatic fracture; Z79.899 Other long term (current) drug therapy
CPT/HCPCS: 36415; 36600; 71045; 71275; 74230; 80048; 80053; 80170-TC; 81000-TC; 82803-TC; 82962; 83036; 83605; 83880; 84439; 84484; 85007; 85025; 85027; 85379; 85610-TC; 85730-TC; 87040-TC; 87086; 92610-GN; 92611-GN; 93005; 93306; 94640; 94660; 94760; 96365; 96368; 96375; 99291; G0378; J0290; J0696; J1580; J1650; J1815; J2001; J2060; J2270; J2405; J2543; J2930; J3370; J3475; J3480; J7030; J7050; J7613; J7620; Q9967